=== PATIENT | female | born 1990 | race Two or more races ===

== ENCOUNTER 2016-07-08 13:52 | Emergency (ER) | payer MEDICAID ==
--- NOTE | 2016-07-08 15:16 | ER Document Report ---
ED Medical Screen (RME) - General Chief Complaint: Cough Stated Complaint: COUGH,HEADACHE,NASAL CONGESTION Time seen by provider: 15:14 Mode of Arrival: Ambulatory Information source: Patient Notes: 26-year-old female presents to ED for high blood pressure runny nose cough and headache and sneezing for week. States she had a child 3 months ago and has not had a period since then unsure if she is or not. States she had elevated blood pressure at home blood pressure is 130/84 in the emergency room. I have greeted and performed a rapid initial assessment of this patient. A comprehensive ED assessment and evaluation of the patient, analysis of test results and completion of medical decision making process will be conducted by an additional ED providers. TRAVEL OUTSIDE OF THE [place] IN LAST 30 DAYS: No - Related Data Allergies/Adverse Reactions: No Known Allergies Allergy (Verified 03/03/16 09:11) Past Medical History Pulmonary Medical History: Reports: Hx Asthma - Immunizations Immunizations up to date: Yes Hx Diphtheria, Pertussis, Tetanus Vaccination: Yes
[2016-07-08 16:02] LABS: APPEARANCE,URINE CLEAR; BILIRUBIN,URINE NEGATIVE (NEGATIVE); GLUCOSE, URINE NEGATIVE (NEGATIVE); KETONES,URINE NEGATIVE (NEGATIVE); LEUKOCYTE ESTERASE,URINE TRACE (NEGATIVE); NITRITE,URINE NEGATIVE (NEGATIVE); PROTEIN,URINE 30 mg/dL (NEGATIVE); UROBILINOGEN,URINE NEGATIVE mg/dL (<2.0)
[2016-07-08 16:04] LABS: URINE SPECIFIC GRAVITY 1.022
--- NOTE | 2016-07-08 16:59 | ER Document Report ---
ED General - General Chief Complaint: Cold Symptoms Stated Complaint: COUGH,HEADACHE,NASAL CONGESTION Mode of Arrival: Ambulatory Notes: The patient is a 26-year-old female who presents with 2 days of nasal congestion and dry cough. She had a normal delivery 3 months ago and is again and does not know what is safe to take. She is also concerned that her blood pressure is elevated. She denies shortness of breath, fevers, difficulty breathing, nausea, vomiting, seizures, abdominal pain, vaginal bleeding or urinary symptoms. TRAVEL OUTSIDE OF THE [place] IN LAST 30 DAYS: No - Related Data Allergies/Adverse Reactions: No Known Allergies Allergy (Verified 07/08/16 15:18) Past Medical History - General Information source: Patient - Social History Smoking Status: Never Smoker Chew tobacco use (# tins/day): No Frequency of alcohol use: None Drug Abuse: None Family History: Reviewed & Not Pertinent Patient has suicidal ideation: No Patient has homicidal ideation: No Pulmonary Medical History: Reports: Hx Asthma Renal/ Medical History: Denies: Hx Peritoneal Dialysis - Immunizations Immunizations up to date: Yes Hx Diphtheria, Pertussis, Tetanus Vaccination: Yes Review of Systems - Review of Systems Notes: REVIEW OF SYSTEMS: CONSTITUTIONAL: -fevers, -chills EENT: -eye pain, -difficulty swallowing, +nasal congestion CARDIOVASCULAR: -chest pain, -syncope. RESPIRATORY: +cough, -SOB GASTROINTESTINAL: -abdominal pain, -nausea, -vomiting, -diarrhea GENITOURINARY: -dysuria, -hematuria MUSCULOSKELETAL: -back pain, -neck pain SKIN: -rash or skin lesions. HEMATOLOGIC: -easy bruising or bleeding. LYMPHATIC: -swollen, enlarged glands. NEUROLOGICAL: -altered mental status or loss of consciousness, -headache, - neurologic symptoms PSYCHIATRIC: -anxiety, -depression. ALL OTHER SYSTEMS REVIEWED AND NEGATIVE. Physical Exam - Vital signs Vitals: Temp Pulse Resp BP Pulse Ox 98.6 F 101 H 16 130/84 H 100 07/08/16 14:51 07/08/16 14:51 07/08/16 14:51 07/08/16 14:51 07/08/16 14:51 - Notes Notes: PHYSICAL EXAMINATION: GENERAL: Well-appearing, well-nourished and in no acute distress. HEAD: Atraumatic, normocephalic. EYES: Pupils equal round and reactive to light, extraocular movements intact, sclera anicteric, conjunctiva are normal. ENT: swollen nasal turbinates, B/L maxillary tenderness, nares patent, oropharynx clear without exudates. Moist mucous membranes. NECK: Normal range of motion, supple without lymphadenopathy LUNGS: Breath sounds clear to auscultation bilaterally and equal. No wheezes rales or rhonchi. HEART: Regular rate and rhythm without murmurs ABDOMEN: Soft, nontender, normoactive bowel sounds. No guarding, no rebound. No masses appreciated. EXTREMITIES: Normal range of motion, no pitting or edema. No cyanosis. NEUROLOGICAL: Cranial nerves grossly intact. Normal speech, normal gait. Normal sensory, motor, and reflex exams. PSYCH: Normal mood, normal affect. SKIN: Warm, Dry, normal turgor, no rashes or lesions noted. Course - Re-evaluation Re-evalutation: Patient's blood pressure is 130/81 emergency room. She has a small amount of protein in her urine. Told to follow up with her OB for further evaluation treatment. Also instructed patient about management of her nasal congestion. - Vital Signs Vital signs: Temp Pulse Resp BP Pulse Ox 98.6 F 101 H 16 130/84 H 100 07/08/16 14:51 07/08/16 14:51 07/08/16 14:51 07/08/16 14:51 07/08/16 14:51 - Laboratory Laboratory results interpreted by me: 07/08/16 15:20 Urine Protein 30 H Ur Leukocyte Esterase TRACE H Urine Ascorbic Acid 40 H Urine HCG, Qual POSITIVE H Discharge - Discharge Clinical Impression: Nasal congestion URI (upper respiratory infection) Qualifiers: URI type: unspecified viral URI Qualified Code(s): J06.9 - Acute upper respiratory infection, unspecified Condition: Good Disposition: HOME, SELF-CARE Additional Instructions: Use the Flonase and Benadryl to help with her nasal congestion. He may also use a saline rinse, such as a Gladis pot. Follow-up with your OB to have your blood pressure rechecked. UPPER RESPIRATORY ILLNESS: You have a viral infection of the respiratory passages -- a "cold." This common infection causes nasal congestion, drainage, and often sore throat and cough. It is highly contagious. The disease usually lasts about 10 to 14 days. There is no "cure" for the viral infection -- it must run its course. If there is a complication, such as bacterial infection in the nose, sinuses, middle ear, or bronchial tubes, antibiotics may be required. The antibiotics won't affect the virus. Drink plenty of fluids. A humidifier may help. An expectorant medication or decongestant may make you more comfortable. Use acetaminophen or ibuprofen for fever or aches. See the doctor if fever persists over two days, if there is any significant worsening of your symptoms, or if you simply fail to improve as expected. USE OF ACETAMINOPHEN (Tylenol): Acetaminophen may be taken for pain relief or fever control. It's much safer than aspirin, offering a wider range of "safe" dosages. It is safe during . Some brand names are Tylenol, Panadol, Datril, Anacin 3, Tempra, and Liquiprin. Acetaminophen can be repeated every four hours. The following are maximum recommended dosages: >89 pounds or adults 650 mg to 900 mg Acetaminophen can be repeated every four hours. Maximum dose not to exceed 4000 mg a day. SMOKING: If you smoke, you should stop smoking. The tar and chemicals in cigarette smoke are harmful. Smoking has been shown to cause: emphysema chronic bronchitis lung cancer mouth and throat cancer stomach and pancreas cancer premature aging defects In addition, smoking increases ear and lung infections in children of smokers. FOLLOW-UP CARE: If you have been referred to a physician for follow-up care, call the physician s office for an appointment as you were instructed or within the next two days. If you experience worsening or a significant change in your symptoms, notify the physician immediately or return to the Emergency Department at any time for re-evaluation. Prescriptions: Fluticasone Propionate [Flonase Nasal [place] 50 Mcg/[place] 16 gm] 1 spray NASL Q12 #1 inhaler
[2016-07-08 17:03] VITALS: BP 131/80
== END 2016-07-08 17:03 | disposition home or self-care (01) ==
LOC: ER 13:52
DX: J06.9 Acute upper respiratory infection, unspecified (principal); R09.81 Nasal congestion; R51 Headache
CPT/HCPCS: 81001; 81025; 99283

== ENCOUNTER 2016-08-18 11:45 | Emergency (ER) | payer MEDICAID ==
[2016-08-18] MEDS ORDERED: ACETAMINOPHEN 325 MG TABLET PO ONE (11:51)
[2016-08-18] MEDS ORDERED: METOCLOPRAMIDE HCL 10 MG TABLET PO ONE (11:52)
--- NOTE | 2016-08-18 11:54 | ER Document Report ---
ED Medical Screen (RME) - General Stated Complaint: NAUSEA Mode of Arrival: Ambulatory Information source: Patient Notes: pt presents with MORALES for the past 2 days. Patient reports she is . She reports with last she was preeclamptic. She also reports nausea and vomiting. LMP May. I have greeted and performed a rapid initial assessment of this patient. A comprehensive ED assessment and evaluation of the patient, analysis of test results and completion of the medical decision making process will be conducted by additional ED providers. TRAVEL OUTSIDE OF THE [place] IN LAST 30 DAYS: No - Related Data Allergies/Adverse Reactions: No Known Allergies Allergy (Verified 07/08/16 15:18) Past Medical History Pulmonary Medical History: Reports: Hx Asthma Renal/ Medical History: Denies: Hx Peritoneal Dialysis - Immunizations Immunizations up to date: Yes Hx Diphtheria, Pertussis, Tetanus Vaccination: Yes
[2016-08-18 12:19] LABS: ABSOLUTE BASOPHILS # (AUTO) 0.1 10^3/uL (0.0-0.2); ABSOLUTE EOSINOPHILS # (AUTO) 0.2 10^3/uL (0.0-0.6); ABSOLUTE LYMPHOCYTES (AUTO) 2.1 10^3/uL (0.5-4.7); ABSOLUTE MONOCYTES (AUTO) 0.5 10^3/uL (0.1-1.4); ABSOLUTE NEUT (AUTO) 3.9 10^3/uL (1.7-8.2); BASOPHILS % (AUTO) 0.7 % (0-2); EOSINOPHILS % (AUTO) 3.6 % (0-6); HEMATOCRIT 35.8 % (36.0-47.0); HEMOGLOBIN 12.2 g/dL (12.0-15.5); HGB HCT DIFFERENCE 0.8; LYMPHOCYTES % (AUTO) 31.2 % (13-45); MEAN CORPUSCULAR HEMOGLOBIN 27.6 pg (27.0-33.4); MEAN CORPUSCULAR VOLUME 81 fl (80-97); MONOCYTES % (AUTO) 7.6 % (3-13); RED BLOOD COUNT 4.41 10^6/uL (3.72-5.28); RED CELL DISTRIBUTION WIDTH 16.1 % (11.5-14.0); SEGMENTED NEUTROPHILS % (AUTO) 56.9 % (42-78); WHITE BLOOD COUNT 6.8 10^3/uL (4.0-10.5)
[2016-08-18 12:27] LABS: APPEARANCE,URINE SLIGHTLY-CLOUDY; BILIRUBIN,URINE NEGATIVE (NEGATIVE); GLUCOSE, URINE NEGATIVE (NEGATIVE); KETONES,URINE NEGATIVE (NEGATIVE); LEUKOCYTE ESTERASE,URINE SMALL (NEGATIVE); NITRITE,URINE NEGATIVE (NEGATIVE); PROTEIN,URINE 30 mg/dL (NEGATIVE); URINE SPECIFIC GRAVITY 1.026; UROBILINOGEN,URINE NEGATIVE mg/dL (<2.0)
[2016-08-18 12:36] LABS: ALANINE AMINOTRANSFERASE 29 U/L (9-52); ALBUMIN 3.9 g/dL (3.5-5.0); ALKALINE PHOSPHATASE 46 U/L (38-126); ANION GAP 11 (5-19); ASPARTATE AMINO TRANSFERASE 21 U/L (14-36); BILIRUBIN,DIRECT 0.1 mg/dL (0.0-0.4); BILIRUBIN,TOTAL 0.5 mg/dL (0.2-1.3); BLOOD UREA NITROGEN 10 mg/dL (7-20); CALCIUM 10.2 mg/dL (8.4-10.2); CARBON DIOXIDE 26 mmol/L (22-30); CHLORIDE 103 mmol/L (98-107); CREATININE RESULT 0.53 mg/dL (0.52-1.25); GLUCOSE 98 mg/dL (75-110); LDH 448 U/L (313-618); POTASSIUM 4.2 mmol/L (3.6-5.0); SODIUM 140.1 mmol/L (137-145); TOTAL PROTEIN 7.4 g/dL (6.3-8.2); URIC ACID 3.8 mg/dL (2.5-6.2)
--- NOTE | 2016-08-18 13:42 | ER Document Report ---
ED General - General Chief Complaint: Headache Stated Complaint: NAUSEA Mode of Arrival: Ambulatory TRAVEL OUTSIDE OF THE [place] IN LAST 30 DAYS: No - HPI Patient complains to provider of: frontal headache Notes: Patient's coming in stating that she's not had a menstrual cycle for the last 3 months concerned she is has a frontal headache which is similar to headaches in the past with no relief with Tylenol home. Patient also is concerned she is and does not know how far along she is. Patient also because complain of some mild nausea denies any fevers chills diarrhea abdominal trauma abdominal pain - Related Data Allergies/Adverse Reactions: No Known Allergies Allergy (Verified 08/18/16 11:54) Past Medical History - General Information source: Patient - Social History Smoking Status: Never Smoker Chew tobacco use (# tins/day): No Frequency of alcohol use: None Drug Abuse: None Family History: Reviewed & Not Pertinent Pulmonary Medical History: Reports: Hx Asthma Renal/ Medical History: Denies: Hx Peritoneal Dialysis - Immunizations Immunizations up to date: Yes Hx Diphtheria, Pertussis, Tetanus Vaccination: Yes Review of Systems - Review of Systems Constitutional: No symptoms reported EENT: No symptoms reported Cardiovascular: No symptoms reported Respiratory: No symptoms reported Gastrointestinal: Nausea Genitourinary: No symptoms reported Female Genitourinary: No symptoms reported Musculoskeletal: No symptoms reported Skin: No symptoms reported Hematologic/Lymphatic: No symptoms reported Neurological/Psychological: Headaches -: Yes All other systems reviewed and negative Physical Exam - Vital signs Vitals: Temp Pulse Resp BP Pulse Ox 98.3 F 106 H 24 H 155/99 H 99 08/18/16 11:51 08/18/16 11:51 08/18/16 11:51 08/18/16 11:51 08/18/16 11:51 Interpretation: Normal - General General appearance: Appears well, Alert - HEENT Head: Normocephalic, Atraumatic Eyes: Normal Pupils: PERRL - Respiratory Respiratory status: No respiratory distress Chest status: Nontender Breath sounds: Normal Chest palpation: Normal - Cardiovascular Rhythm: Regular Heart sounds: Normal auscultation Murmur: No - Abdominal Inspection: Normal Distension: No distension Bowel sounds: Normal Tenderness: Nontender Organomegaly: No organomegaly - Back Back: Normal, Nontender - Extremities General upper extremity: Normal inspection, Nontender, Normal color, Normal ROM , Normal temperature General lower extremity: Normal inspection, Nontender, Normal color, Normal ROM , Normal temperature, Normal weight bearing. No: Margarita's sign - Neurological Neuro grossly intact: Yes Cognition: Normal Orientation: AAOx4 Daniel Coma Scale Eye Opening: Spontaneous Daniel Coma Scale Verbal: Oriented Ralph Coma Scale Motor: Obeys Commands Ralph Coma Scale Total: 15 Speech: Normal Motor strength normal: LUE, RUE, LLE, RLE Sensory: Normal - Psychological Associated symptoms: Normal affect, Normal mood - Skin Skin Temperature: Warm Skin Moisture: Dry Skin Color: Normal Course - Re-evaluation Re-evalutation: 08/18/16 13:38 Patient laboratory showed elevation in the patient's beta-hCG. Bedside ultrasound does confirm a IUP with a biparietal measurement of approximately 13 weeks. Patient's heart tones was measured at 160-158. Otherwise no other signs of concerning etiology. Patient was encouraged to take Reglan for for nausea and vitamins. 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 Patient will be discharged home - Vital Signs Vital signs: Temp Pulse Resp BP Pulse Ox 98.3 F 106 H 24 H 155/99 H 99 08/18/16 11:51 08/18/16 11:51 08/18/16 11:51 08/18/16 11:51 08/18/16 11:51 - Laboratory Result Diagrams: 08/18/16 12:00 08/18/16 12:00 Laboratory results interpreted by me: 08/18/16 08/18/16 08/18/16 12:00 12:00 12:05 Hct 35.8 L RDW 16.1 H Beta HCG, Quant 20269.00 H Urine Protein 30 H Ur Leukocyte Esterase SMALL H Urine Ascorbic Acid 40 H Discharge - Discharge Clinical Impression: Nausea Qualifiers: Weeks of gestation: 13 weeks Qualified Code(s): Z3A.13 - 13 weeks gestation of Headache Qualifiers: Headache type: unspecified Headache chronicity pattern: unspecified pattern Intractability: not intractable Qualified Code(s): R51 - Headache Condition: Good Disposition: HOME, SELF-CARE Instructions: Headache ([facility]), Reglan ([facility]), ([facility]) Additional Instructions: Take medication as prescribed. Please continue to take your vitamins. You have been seen for vomiting during . You should continue to drink plenty of water and consider taking a solution such as Pedialyte if your having difficulty eating food. Please return if you become unable to drink any fluids for more than 12 hours, urinate less than twice a day, pass out, or have any other symptoms that are concerning to you. For nausea and vomiting during I recomment: Start with 10-12.5 mg of pyridoxine (vitamin B6) three times a day for 2 days. If not fully effective, Increase to 12.5 mg of pyridoxine four times a day for 2 days. If not fully effective, Increase to 25 mg of pyridoxine three times a day for 2 days. If not fully effective, Continue 25 mg pyridoxine 3 times a day, and add 12.5 mg of doxylamine before bedtime each day for 2 days. If not fully effective, Continue 25 mg pyridoxine 3 times a day, and take 12.5 mg of doxylamine twice a day. If not fully effective, Continue 25 mg pyridoxine 3 times a day, and take 12.5 mg of doxylamine three times a day. If not fully effective, Continue 25 mg pyridoxine 3 times a day, and 12.5 mg of doxylamine 3 times a day , while adding Emetrol, one to two tablespoons (15-30 cc) taken once or twice a day as needed. (Emetrol is an [id number] mixture of sugar syrups and phosphoric acid [phosphorylated carbohydrate solution]) that acts by soothing the actual wall of the gastrointestinal tract). If not fully effective, Consult with your doctor. Prescriptions: Metoclopramide HCl [Reglan] 5 mg PO Q6 #20 tablet Pnv No.122/Iron/Folic Acid [ Multi Tablet] 1 each PO DAILY #30 tablet Referrals: BHUMIKA BAILEY MD [Primary Care Provider] - Follow up in 3-5 days
[2016-08-18 14:16] VITALS: BP 133/87
== END 2016-08-18 14:14 | disposition home or self-care (01) ==
LOC: ER 11:45
DX: R51 Headache (principal); R11.0 Nausea; Z3A.13 13 weeks gestation of pregnancy
CPT/HCPCS: 99284; 36415; 84702; 83615; 84550; 85025; 80053; 81001; J3490 ×2

== ENCOUNTER 2016-09-04 17:16 | Emergency (ER) | payer SELFPAY ==
--- NOTE | 2016-09-04 18:02 | ER Document Report ---
ED Medical Screen (RME) - General Chief Complaint: High Blood Pressure Stated Complaint: HEADACHE,LIGHTHEADED Notes: This 26-year-old female who is 16 weeks is sent from the health department for monitoring for elevated blood pressure. She did have preeclampsia with her first and was delivered at 29 weeks. Her most recent her blood pressure was quite elevated, but she reports that they never started treatment during that . She has no symptoms associated with this other than occasional nausea. I have greeted and performed a rapid initial assessment of this patient. A comprehensive ED assessment and evaluation of the patient, analysis of test results and completion of the medical decision making process will be conducted by additional ED providers. TRAVEL OUTSIDE OF THE [place] IN LAST 30 DAYS: No - Related Data Allergies/Adverse Reactions: No Known Allergies Allergy (Verified 09/04/16 17:29) Past Medical History Pulmonary Medical History: Reports: Hx Asthma Renal/ Medical History: Denies: Hx Peritoneal Dialysis - Immunizations Immunizations up to date: Yes Hx Diphtheria, Pertussis, Tetanus Vaccination: Yes Physical Exam - Vital signs Vitals: Temp Pulse Resp BP Pulse Ox 98.3 F 95 20 147/102 H 100 09/04/16 17:32 09/04/16 17:32 09/04/16 17:32 09/04/16 17:32 09/04/16 17:32 Course - Vital Signs Vital signs: Temp Pulse Resp BP Pulse Ox 98.3 F 95 20 147/102 H 100 09/04/16 17:32 09/04/16 17:32 09/04/16 17:32 09/04/16 17:32 09/04/16 17:32
[2016-09-04 18:39] LABS: ABSOLUTE EOSINOPHILS # (AUTO) 0.5 10^3/uL (0.0-0.6); ABSOLUTE LYMPHOCYTES (AUTO) 2.5 10^3/uL (0.5-4.7); ABSOLUTE MONOCYTES (AUTO) 0.7 10^3/uL (0.1-1.4); BASOPHILS % (AUTO) 0.4 % (0-2); EOSINOPHILS % (AUTO) 6.2 % (0-6); HEMATOCRIT 36.7 % (36.0-47.0); HEMOGLOBIN 12.3 g/dL (12.0-15.5); HGB HCT DIFFERENCE 0.2; LYMPHOCYTES % (AUTO) 28.3 % (13-45); MEAN CORPUSCULAR HEMOGLOBIN 27.5 pg (27.0-33.4); MEAN CORPUSCULAR HGB CONC 33.4 g/dL (32.0-36.0); MEAN CORPUSCULAR VOLUME 82 fl (80-97); MONOCYTES % (AUTO) 8.3 % (3-13); RED BLOOD COUNT 4.46 10^6/uL (3.72-5.28); RED CELL DISTRIBUTION WIDTH 15.9 % (11.5-14.0); SEGMENTED NEUTROPHILS % (AUTO) 56.8 % (42-78); WHITE BLOOD COUNT 8.8 10^3/uL (4.0-10.5)
[2016-09-04 18:53] LABS: APPEARANCE,URINE SLIGHTLY-CLOUDY; BILIRUBIN,URINE NEGATIVE (NEGATIVE); GLUCOSE, URINE NEGATIVE (NEGATIVE); KETONES,URINE NEGATIVE (NEGATIVE); LEUKOCYTE ESTERASE,URINE NEGATIVE (NEGATIVE); NITRITE,URINE NEGATIVE (NEGATIVE); PROTEIN,URINE 30 mg/dL (NEGATIVE); URINE SPECIFIC GRAVITY 1.029; UROBILINOGEN,URINE NEGATIVE mg/dL (<2.0)
[2016-09-04 19:02] LABS: ALANINE AMINOTRANSFERASE 29 U/L (9-52); ALBUMIN 4.2 g/dL (3.5-5.0); ALKALINE PHOSPHATASE 52 U/L (38-126); ANION GAP 14 (5-19); ASPARTATE AMINO TRANSFERASE 28 U/L (14-36); BILIRUBIN,DIRECT 0.2 mg/dL (0.0-0.4); BILIRUBIN,TOTAL 0.5 mg/dL (0.2-1.3); BLOOD UREA NITROGEN 13 mg/dL (7-20); CALCIUM 10.1 mg/dL (8.4-10.2); CARBON DIOXIDE 24 mmol/L (22-30); CHLORIDE 103 mmol/L (98-107); CREATININE RESULT 0.52 mg/dL (0.52-1.25); GLUCOSE 90 mg/dL (75-110); POTASSIUM 4.5 mmol/L (3.6-5.0); SODIUM 140.5 mmol/L (137-145); TOTAL PROTEIN 7.8 g/dL (6.3-8.2)
[2016-09-04 20:49] VITALS: BP 130/95
--- NOTE | 2016-09-04 21:13 | ER Document Report ---
ED General - General Chief Complaint: High Blood Pressure Stated Complaint: HEADACHE,LIGHTHEADED Notes: Patient is a 26-year-old female, at 16 weeks gestation by first trimester ultrasound, that comes emergency department for chief complaint of being sent from the health department for elevated blood pressures. Patient denies any current symptoms, states she feels fine now, states she did have a headache earlier but this resolved. She denies vomiting, abdominal pain, vaginal bleeding, or any other current symptoms. He states she has a history of preeclampsia with her second , states she was induced at 29 weeks. TRAVEL OUTSIDE OF THE [place] IN LAST 30 DAYS: No - Related Data Allergies/Adverse Reactions: No Known Allergies Allergy (Verified 09/04/16 17:29) Past Medical History - General Information source: Patient - Social History Smoking Status: Never Smoker Frequency of alcohol use: None Drug Abuse: None Lives with: Family Family History: Reviewed & Not Pertinent Patient has suicidal ideation: No Patient has homicidal ideation: No Pulmonary Medical History: Reports: Hx Asthma Renal/ Medical History: Denies: Hx Peritoneal Dialysis - Immunizations Immunizations up to date: Yes Hx Diphtheria, Pertussis, Tetanus Vaccination: Yes Review of Systems - Review of Systems Constitutional: No symptoms reported EENT: No symptoms reported Cardiovascular: See HPI Respiratory: No symptoms reported Gastrointestinal: No symptoms reported Genitourinary: No symptoms reported Female Genitourinary: See HPI Musculoskeletal: No symptoms reported Skin: No symptoms reported Hematologic/Lymphatic: No symptoms reported Neurological/Psychological: No symptoms reported Physical Exam - Vital signs Vitals: Temp Pulse Resp BP Pulse Ox 98.3 F 95 20 147/102 H 100 09/04/16 17:32 09/04/16 17:32 09/04/16 17:32 09/04/16 17:32 09/04/16 17:32 Interpretation: Normal - General General appearance: Appears well, Alert, Other - Patient appears excited, talks rapidly, appears slightly nervous In distress: None - HEENT Head: Normocephalic, Atraumatic Eyes: Normal Pupils: PERRL - Respiratory Respiratory status: No respiratory distress Chest status: Nontender Breath sounds: Normal Chest palpation: Normal - Cardiovascular Rhythm: Regular. No: Tachycardia Heart sounds: Normal auscultation, S1 appreciated, S2 appreciated Murmur: No - Abdominal Inspection: Normal Distension: No distension Bowel sounds: Normal Tenderness: Nontender. No: Tender Organomegaly: No organomegaly - Back Back: Normal, Nontender - Extremities General upper extremity: Normal inspection, Nontender, Normal color, Normal ROM , Normal temperature General lower extremity: Normal inspection, Nontender, Normal color, Normal ROM , Normal temperature, Normal weight bearing. No: Margarita's sign - Neurological Neuro grossly intact: Yes Cognition: Normal Orientation: AAOx4 Daniel Coma Scale Eye Opening: Spontaneous Daniel Coma Scale Verbal: Oriented Daniel Coma Scale Motor: Obeys Commands Daniel Coma Scale Total: 15 Speech: Normal Motor strength normal: LUE, RUE, LLE, RLE Sensory: Normal - Psychological Associated symptoms: Normal affect, Normal mood, Anxious - Slightly - Skin Skin Temperature: Warm Skin Moisture: Dry Skin Color: Normal Course - Re-evaluation Re-evalutation: Patient initially very nervous and excited, blood pressure slightly elevated at nonspecific, this was repeated when she was calmer and is in the 130s over 80s, patient very well appearing, soft abdomen, unremarkable vital signs, nonspecific workup which is basically unchanged from the previous 2 workups that she has had during this at this department. Patient is less than 20 weeks gestation, per up-to-date guidelines they do not recommend treatment of elevated blood pressure that is averaging below 150s over 100s even in patients greater than 20 weeks who have preeclampsia. I discussed this with patient. I discussed her workup, patient has follow-up are scheduled for [employer]PUT[employer]ER[employer] BUILDING GUARD, discussed return precautions. Patient states understanding, satisfaction, agreement. - Vital Signs Vital signs: Temp Pulse Resp BP Pulse Ox 99.1 F 103 H 16 130/95 H 98 09/04/16 20:45 09/04/16 20:45 09/04/16 20:45 09/04/16 20:45 09/04/16 20:45 - Laboratory Result Diagrams: 09/04/16 18:05 09/04/16 18:05 Laboratory results interpreted by me: 09/04/16 09/04/16 18:05 18:10 RDW 15.9 H Eosinophils % 6.2 H Urine Protein 30 H Discharge - Discharge Clinical Impression: Elevated blood pressure reading Condition: Stable Disposition: HOME, SELF-CARE Additional Instructions: Your blood pressure is borderline high, I suspect this is not specific to and you likely have pre-existing borderline hypertension. 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 Follow-up with them for additional management. However please return immediately if she develops any concerning symptoms including severe headache, severe abdominal pain, vaginal bleeding, or any other concerning symptoms.
== END 2016-09-04 21:05 | disposition home or self-care (01) ==
LOC: ER 17:16
DX: R03.0 Elevated blood-pressure reading, without diagnosis of hypertension (principal); R51 Headache; R42 Dizziness and giddiness; Z3A.16 16 weeks gestation of pregnancy
CPT/HCPCS: 36415; 80053; 81001; 85025; 99284

== ENCOUNTER 2016-09-18 17:51 | Emergency (ER) | payer SELFPAY ==
[2016-09-18 18:13] VITALS: BP 128/88
== END 2016-09-19 01:00 | disposition left against medical advice (07) ==
LOC: ER 17:51
DX: Z53.21 Procedure and treatment not carried out due to patient leaving prior to being seen by health care provider (principal)

== ENCOUNTER → 2016-10-24 | Outpatient (CLI) | payer MEDICAID ==
--- NOTE | 2016-10-24 16:45 | RADIOLOGY REPORT (SQ) ---
EXAM DESCRIPTION: U/S OB 14+ TRNABD 1GES W/O DOP COMPLETED DATE/TIME: 10/24/2016 4:28 pm REASON FOR STUDY: SECOND TRIMESTER Z34.82 ENCOUNTER FOR SUPRVSN OF NORMAL , SECO ND TRI COMPARISON: None. TECHNIQUE: Static and Dynamic grayscale imaging performed of gravid uterus using transabdominal appr oach. Additional selected color Doppler and spectral images recorded. All stored on PACS. LIMITATIONS: None. FINDINGS: EGA: 22 week 4 day. JERE: 02/23/2017. EFW: 508 g. PERCENTILE: 24%. FABIANO: Adequate amount. PLACENTA: Anterior. PRESENTATION: Breech. ANATOMY: HEART RATE: 173 beats per minute. FOUR CHAMBER HEART: Visualized. THREE VESSEL CORD: Yes. CORD INSERTION: Visualized. KIDNEYS AND BLADDER: Visualized. Appear normal. STOMACH: Visualized. Appears normal. SPINE: Normal as visualized. BRAIN AND LATERAL VENTRICLES: Visualized. Appear normal. OTHER: No other significant finding. MATERNAL ADNEXA: Maternal ovaries not visualized. OTHER: No other significant finding. IMPRESSION: LIVING INTRAUTERINE . ESTIMATED GESTATIONAL AGE 22 WEEK 4 DAY. NO VISUALIZED ANOMALIES. Trimester of : Second trimester - 13 weeks 1 day to 27 weeks 6 days. TECHNICAL DOCUMENTATION: JOB ID: [id number] [employer]- All Rights Reserved
== END ==
LOC: RAD 15:30
PROVIDERS: ATTEND Nurse Practitioner Women's Health
DX: Z34.82 Encounter for supervision of other normal pregnancy, second trimester (principal)
CPT/HCPCS: 76805

== ENCOUNTER 2016-12-02 14:17 | Observation (INO) | payer MEDICAID ==
[2016-12-02 15:14] LABS: APPEARANCE,URINE SLIGHTLY-CLOUDY; BILIRUBIN,URINE NEGATIVE (NEGATIVE); GLUCOSE, URINE NEGATIVE (NEGATIVE); KETONES,URINE NEGATIVE (NEGATIVE); LEUKOCYTE ESTERASE,URINE NEGATIVE (NEGATIVE); NITRITE,URINE NEGATIVE (NEGATIVE); PROTEIN,URINE NEGATIVE (NEGATIVE); URINE SPECIFIC GRAVITY 1.016; UROBILINOGEN,URINE NEGATIVE mg/dL (<2.0)
[2016-12-02 15:15] LABS: URINE BARBITURATES SCREEN NEGATIVE; URINE METHADONE SCREEN NEGATIVE; URINE OPIATES LOW NEGATIVE; URINE PHENCYCLIDINE SCREEN NEGATIVE
[2016-12-02 15:35] LABS: URINE CREATININE 106.6 mg/dL (16-327); URINE PROTEIN 37.6 mg/dL (<12)
[2016-12-02 15:51] LABS: ALANINE AMINOTRANSFERASE 29 U/L (9-52); ALBUMIN 3.5 g/dL (3.5-5.0); ALKALINE PHOSPHATASE 67 U/L (38-126); ANION GAP 11 (5-19); ASPARTATE AMINO TRANSFERASE 23 U/L (14-36); BILIRUBIN,DIRECT 0.3 mg/dL (0.0-0.4); BILIRUBIN,TOTAL 0.4 mg/dL (0.2-1.3); BLOOD UREA NITROGEN 9 mg/dL (7-20); CALCIUM 9.7 mg/dL (8.4-10.2); CARBON DIOXIDE 21 mmol/L (22-30); CHLORIDE 107 mmol/L (98-107); CREATININE RESULT 0.42 mg/dL (0.52-1.25); GLUCOSE 90 mg/dL (75-110); LDH 471 U/L (313-618); POTASSIUM 4.8 mmol/L (3.6-5.0); SODIUM 138.5 mmol/L (137-145); TOTAL PROTEIN 7.2 g/dL (6.3-8.2); URIC ACID 3.6 mg/dL (2.5-6.2)
[2016-12-02] MEDS ORDERED: BETAMET ACET/BETAMET NA INJ 6 MG/1 ML ONE (15:51)
[2016-12-02] MEDS ORDERED: LABETALOL HCL 200 MG TABLET ONE (16:05)
[2016-12-02] MEDS: BETAMET ACET/BETAMET NA INJ 6 MG/1 ML IM SCH (16:11)
[2016-12-02 16:27] LABS: ABSOLUTE BASOPHILS # (AUTO) 0.1 10^3/uL (0.0-0.2); ABSOLUTE EOSINOPHILS # (AUTO) 0.2 10^3/uL (0.0-0.6); ABSOLUTE LYMPHOCYTES (AUTO) 2.5 10^3/uL (0.5-4.7); ABSOLUTE MONOCYTES (AUTO) 0.8 10^3/uL (0.1-1.4); ABSOLUTE NEUT (AUTO) 5.9 10^3/uL (1.7-8.2); BASOPHILS % (AUTO) 0.6 % (0-2); EOSINOPHILS % (AUTO) 1.9 % (0-6); HEMATOCRIT 36.2 % (36.0-47.0); HEMOGLOBIN 12.1 g/dL (12.0-15.5); HGB HCT DIFFERENCE 0.1; LYMPHOCYTES % (AUTO) 26.7 % (13-45); MEAN CORPUSCULAR HEMOGLOBIN 28.2 pg (27.0-33.4); MEAN CORPUSCULAR HGB CONC 33.5 g/dL (32.0-36.0); MEAN CORPUSCULAR VOLUME 84 fl (80-97); MONOCYTES % (AUTO) 8.4 % (3-13); RED CELL DISTRIBUTION WIDTH 14.8 % (11.5-14.0); SEGMENTED NEUTROPHILS % (AUTO) 62.4 % (42-78); WHITE BLOOD COUNT 9.5 10^3/uL (4.0-10.5)
--- NOTE | 2016-12-02 18:47 | RADIOLOGY REPORT (SQ) ---
EXAM DESCRIPTION: U/S OB LIMITED COMPLETED DATE/TIME: 12/02/2016 5:38 pm REASON FOR STUDY: 29wk IUP, poor dates, HTN, GROWTH COMPARISON: None. TECHNIQUE: Limited transabdominal grayscale ultrasound for evaluation of specific requested obstetri kb parameters. LIMITATIONS: None. FINDINGS: Intrauterine measuring 29 weeks 2 days by composite ultrasound scoring, consiste nt with dates. EFW 1394 g. CERVICAL LENGTH: Not visualized FABIANO: 15.2 cm. FHR: Not documented. PRESENTATION: Cephalic. OTHER: Anterior placenta. IMPRESSION: LIMITED OBSTETRICAL ULTRASOUND WITH MEASURED PARAMETERS DELINEATED ABOVE. Trimester of : Third trimester - 28 weeks to delivery. TECHNICAL DOCUMENTATION: JOB ID: [id number] [employer]- All Rights Reserved
[2016-12-03] MEDS ORDERED: LABETALOL HCL 200 MG TABLET PO SCH (06:00)
--- NOTE | 2016-12-03 08:18 | EKG REPORT ---
SEVERITY:- ABNORMAL ECG - SINUS TACHYCARDIA PROBABLE LEFT VENTRICULAR HYPERTROPHY BORDERLINE PROLONGED QT INTERVAL : Confirmed by: Ben Cox MD 03-Dec-2016 08:17:49
--- NOTE | 2016-12-03 09:51 | PDOC PROGRESS REPORT ---
Subjective Subjective:: Pt reports feeling well, onlt occ "heart palpatations" when she gets nervous, no pain or SOB No ctx's, VB or LOF, reports good movement Physical Exam - Physical Exam Vital Signs: Temp Pulse Resp BP Pulse Ox 97.7 F 112 H 16 125/74 98 12/03/16 08:04 12/03/16 08:04 12/03/16 08:04 12/03/16 08:04 12/03/16 08:04 Intake & Output 12/02/16 12/03/16 12/04/16 06:59 06:59 06:59 Weight 111.35 kg General appearance: PRESENT: no acute distress, well-developed Result Laboratory Results: 12/02/16 16:03 12/02/16 15:15 12/02/16 12/02/16 12/02/16 14:33 15:15 15:15 WBC RBC Hgb Hct MCV MCH MCHC RDW Plt Count Seg Neutrophils % Lymphocytes % Monocytes % Eosinophils % Basophils % Absolute Neutrophils Absolute Lymphocytes Absolute Monocytes Absolute Eosinophils Absolute Basophils Sodium 138.5 Potassium 4.8 Chloride 107 Carbon Dioxide 21 L Anion Gap 11 BUN 9 Creatinine 0.42 L Est GFR ( Amer) > 60 Est GFR (Non-Af Amer) > 60 Glucose 90 Uric Acid 3.6 Calcium 9.7 Total Bilirubin 0.4 AST 23 ALT 29 Alkaline Phosphatase 67 Total Protein 7.2 Albumin 3.5 Urine Color YELLOW Urine Appearance SLIGHTLY-CLOUDY Urine pH 6.0 Ur Specific [place] 1.016 Urine Protein NEGATIVE Urine Glucose (UA) NEGATIVE Urine Ketones NEGATIVE Urine Blood NEGATIVE Urine Nitrite NEGATIVE Ur Leukocyte Esterase NEGATIVE Urine WBC (Auto) 2 Urine RBC (Auto) 3 Blood Type A POSITIVE Antibody Screen NEGATIVE 12/02/16 16:03 WBC 9.5 RBC 4.30 Hgb 12.1 Hct 36.2 MCV 84 MCH 28.2 MCHC 33.5 RDW 14.8 H Plt Count 276 Seg Neutrophils % 62.4 Lymphocytes % 26.7 Monocytes % 8.4 Eosinophils % 1.9 Basophils % 0.6 Absolute Neutrophils 5.9 Absolute Lymphocytes 2.5 Absolute Monocytes 0.8 Absolute Eosinophils 0.2 Absolute Basophils 0.1 Sodium Potassium Chloride Carbon Dioxide Anion Gap BUN Creatinine Est GFR ( Amer) Est GFR (Non-Af Amer) Glucose Uric Acid Calcium Total Bilirubin AST ALT Alkaline Phosphatase Total Protein Albumin Urine Color Urine Appearance Urine pH Ur Specific [place] Urine Protein Urine Glucose (UA) Urine Ketones Urine Blood Urine Nitrite Ur Leukocyte Esterase Urine WBC (Auto) Urine RBC (Auto) Blood Type Antibody Screen Impressions: Obstetrics Ultrasound 12/02/16 00:00 IMPRESSION: LIMITED OBSTETRICAL ULTRASOUND WITH MEASURED PARAMETERS DELINEATED ABOVE. Trimester of : Third trimester - 28 weeks to delivery. Status: Imported from [facility] Assessment & Plan - Diagnosis (1) Gestational hypertension Qualifiers: Trimester: third trimester Is this a current diagnosis for this admission?: Yes (2) Hepatitis C carrier Is this a current diagnosis for this admission?: Yes (3) Limited care Qualifiers: Trimester: third trimester Qualified Code(s): O09.33 - Supervision of with insufficient care, third trimester Is this a current diagnosis for this admission?: Yes - Time Time Spent with patient: 15-24 minutes Medications reviewed and adjusted accordingly: Yes Anticipated discharge: Home Within: within 48 hours - Will await Cardiology consult
--- NOTE | 2016-12-03 10:09 | XCELERA REPORT ---
[address] [address] Transthoracic Echocardiogram Report Name: WILLIAMS RAY Age: 26 yrs Gender: Female : 1990 Patient Status: Inpatient Patient Location: 2N\S\208\S\A Study Date: 12/03/2016 08:07 AM Height: 62 in Weight: 245 lb BSA: 2.1 m2 Procedure: A two-dimensional transthoracic echocardiogram with color flow and Doppler was performed. The study was technically adequate with some images being suboptimal in quality. Reason For Study: [email or web address] History: TACHYCARDUIA. Ordering Physician: MICHELLE ADAMES Performed By: Abimael Fine Interpretation Summary The left ventricle is normal in size. There is normal left ventricular wall thickness. LV EF is > than 60% Left ventricular systolic function is normal. Doppler measurements suggest normal left ventricular diastolic function The left ventricular wall motion is normal. There is no thrombus. There is no ventricular septal defect visualized. The right ventricle is normal in size and function. The right atrium is normal. The left atrial size is normal. The interatrial septum is intact with no evidence for an atrial septal defect. There is subtle prolapse of the anterior mitral valve prolapse. There is no vegetation seen on the mitral valve. There is no mitral valve stenosis. There is a trace amount of mitral regurgitation The aortic valve is trileaflet. The aortic valve is normal in structure and functions normally The aortic valve opens well. There is no aortic valvular vegetation. There is no aortic valve stenosis There is no LVOT obstruction. No aortic regurgitation is present. There is no tricuspid stenosis. There is a trace amount of tricuspid regurgitation Right ventricular systolic pressure is normal. RVSP is 26.3 mm of Hg ,with RA mean of 5. There is no pulmonic valvular stenosis. There is a trace amount of pulmonic regurgitation The aortic root is normal size. There is no pericardial effusion. MMode/2D Measurements \T\ Calculations RVDd: 2.5 cm LVIDd: 4.5 cm FS: 33.1 % Ao root diam: 3.1 cm IVSd: 1.1 cm LVIDs: 3.0 cm EDV(Teich): 90.5 ml LVPWd: 1.2 cm ESV(Teich): 34.5 ml Ao root area: 7.7 cm2 EF(Teich): 61.9 % Doppler Measurements \T\ Calculations MV E max hubert: MV dec slope: Ao V2 max: LV V1 max P.3 cm/sec 146.6 cm/sec 4.0 mmHg MV A max hubert: 840.1 cm/sec2 Ao max PG: LV V1 max: 74.2 cm/sec MV dec time: 8.6 mmHg 99.6 cm/sec MV E/A: 1.2 0.10 sec PA V2 max: PI end-d hubert: TR max hubert: RAP systole: 96.7 cm/sec 140.1 cm/sec 229.9 cm/sec 5.0 mmHg PA max PG: TR max P.7 mmHg 21.3 mmHg RVSP(TR): 26.3 mmHg Left Ventricle The left ventricle is normal in size. There is normal left ventricular wall thickness. LV EF is > than 60%. Left ventricular systolic function is normal. Doppler measurements suggest normal left ventricular diastolic function. The left ventricular wall motion is normal. There is no thrombus. There is no ventricular septal defect visualized. Right Ventricle The right ventricle is normal in size and function. Atria The right atrium is normal. The left atrial size is normal. The interatrial septum is intact with no evidence for an atrial septal defect. Mitral Valve There is subtle prolapse of the anterior mitral valve prolapse. There is no vegetation seen on the mitral valve. There is no mitral valve stenosis. There is a trace amount of mitral regurgitation. Aortic Valve The aortic valve is trileaflet. The aortic valve is normal in structure and functions normally. The aortic valve opens well. There is no aortic valvular vegetation. There is no aortic valve stenosis. There is no LVOT obstruction. No aortic regurgitation is present. Tricuspid Valve There is no tricuspid stenosis. There is a trace amount of tricuspid regurgitation. Right ventricular systolic pressure is normal. RVSP is 26.3 mm of Hg ,with RA mean of 5. Pulmonic Valve There is no pulmonic valvular stenosis. There is a trace amount of pulmonic regurgitation. Great Vessels The aortic root is normal size. Effusions There is no pericardial effusion. : MICHELLE ADAMES > Michelle Adames
[2016-12-03 11:23] LABS: FREE T3 2.4 pg/mL (2.77-5.27)
[2016-12-03 11:36] LABS: THYROID STIMULATING HORMONE 0.59 uIU/mL (0.47-4.68)
[2016-12-03 16:03] VITALS: BP 134/87
[2016-12-03] MEDS: BETAMET ACET/BETAMET NA INJ 6 MG/1 ML IM SCH (17:06)
--- NOTE | 2016-12-03 18:18 | CONSULTATION REPORT E ---
Consultation Report NAME: WILLIAMS RAY : 1990 AGE: 26Y DATE: 12/03/2016 208 A TO: JORDIN ADAMES M.D. FROM: Requesting Physician REASON FOR CONSULTATION: Sinus tachycardia in a patient who is in third trimester of . HISTORY: The patient is a morbidly obese female who has been diagnosed with having gestational diabetes in her third trimester of . She is morbid obesity and she states that since the last 3 weeks, she has been having rapid racing heart beat, but no associated shortness of breath, chest pain, dizziness, near syncope or syncope. There is no PND or orthopnea. There is no dyspnea. The patient states that since the last 3 weeks, she has been feeling more anxious and has episodes where she becomes extremely nervous and her heart rate jumps up to the 130s to 140s. At present, the patient is comfortable. She is not aware of her heart racing. PAST MEDICAL HISTORY: Positive for: 1. History of preeclampsia in her first . 2. Gestational diabetes in her second . 3. Now in the third trimester of her third , she has got gestational hypertension. 4. The patient claims that she has a history of asthma, but has not had an asthmatic attack in a long time. 5. She has no history of sleep apnea. 6. She has no history of diabetes mellitus or gestational diabetes. 7. There is no history of headaches, seizures or migraines. 8. There is no syncope. 9. She does have palpitations as mentioned earlier. 10. There is no history of congenital heart disease. 11. She states she has anxiety and has 'nervous spells'. PAST SURGICAL HISTORY: Cyst removed from the left wrist. ALLERGIES: She has no known allergies. SOCIAL HISTORY: The patient does not smoke. There is no history of EtOH abuse. FAMILY HISTORY: She states her mother has a murmur, but no other illnesses in the family. DISPOSITION: The patient is a FULL CODE. Her mother is her surrogate healthcare decision maker. MEDICATIONS: 1. Erick-In-Radha 12 mg IM daily. 2. Labetalol 100 mg p.o. every 12 hours. REVIEW OF SYMPTOMS: CONSTITUTIONAL: Denies any fever, chills, or rigors. Does complain of some fatigue, but no generalized weakness. HEAD: Denies headaches or head injury or dizziness. EYES: No history of amblyopia or diplopia. No history of amaurosis fugax. EARS: No history of hearing loss. No history of tinnitus. No history of recurrent ear infections. No history of vertigo. NOSE: No history of hay fever. No history of nosebleeds. No history of nasal allergies. MOUTH: No history of altered taste sensation. No history of ulcers in the mouth. No bleeding from the gums. THROAT: No odynophagia or dysphagia. No history of recurrent sore throats. SKIN: No history of pruritus. No history of yellowish discoloration of the skin. No history of skin cancer or psoriasis. NECK: No painless or painful swelling of the neck. No goiter. No neck pain. LUNGS: Past history of asthma in the past, but no attacks in a long time. No history of cough or sputum production. No history of COPD. No history of sleep apnea. No history of pulmonary embolism. No history of pleuritic chest pain. No history of cough. CARDIAC: No history of congestive heart failure. No history of chest pain or discomfort. No history of congenital heart disease. There is no history of PND, orthopnea or shortness of breath. The patient complains of palpitations over the last 3 weeks, but has no other symptoms associated with that. There is no leg edema. There is no near syncope, syncope, or dizziness. The patient has been noted to be having gestational diabetes and the patient is on labetalol for that. GASTROINTESTINAL: No history of GI bleed. No history of peptic ulcer disease. No history of jaundice. No history of fatty food intolerance. No history of cirrhosis. No abdominal pain. COLLECTION CORRESPONDENT: The patient has been found to have gestational diabetes in her third trimester. RENAL: Negative for any chronic kidney disease. No history of symptoms of UTI. No history of hematuria, pyuria or dysuria. MUSCULOSKELETAL: Denies arthritis, collagen vascular disease. METABOLIC: No history of gout. No history of hyperlipidemia. History of obesity present. CENTRAL NERVOUS SYSTEM: No history of seizures, headaches or migraines. No history of TIA or CVA. No history of gait imbalance. PSYCHIATRIC: No history of depression, but the patient does have a history of anxiety and states she becomes nervous for no reason, at which time, her heart rate goes up. VASCULAR: No history of calf or buttock claudication. No history of DVT. HEMATOLOGIC: No history of anemia. No history of bleeding diathesis. No history of clotting disorders. The rest of the review of symptoms is negative for any fever, chills or rigors. ENDOCRINE: No history of diabetes mellitus. No history of thyroid disease. No history of heat or cold intolerance. No history of polydipsia or polyuria. No history of hirsutism. No history of excessive sweating. PHYSICAL EXAMINATION: GENERAL: On examination, the patient is morbidly obese, but well groomed and at present, in no acute distress. VITAL SIGNS: She is afebrile with a temperature of 97.7 degrees Fahrenheit. Her pulse is 110 beats per minute, regular. Blood pressure is 125/74. Respirations 16 per minute. O2 saturation 98% on room air. HEENT: Head is atraumatic and normocephalic. Eyes; pupils are equal, round, regular, reactive to light and accommodation. Extraocular movements are normal. There is no conjunctival pallor. There is no scleral icterus. Ears; tympanic membranes are intact. External auditory canals are clear. Nose; there is no deviated nasal septum. There is no inflammation of the nasal mucous membranes. Mouth; mucous membranes of the mouth are moist. Tongue is moist. There are no ulcers. There is no bleeding from the gums. Throat; there is no redness of the oropharynx. There are no exudates in the throat. SKIN: There are no skin rashes. There is no petechia or ecchymosis. There are no skin lesions. NECK: Supple. There is no JVD. Carotids are equal. There is no bruit. There is no lymphadenopathy. Trachea is central. There is no goiter. LUNGS: There is no accessory muscles or respiration in use. Lungs are clear to auscultation and percussion. CHEST: There is no chest wall tenderness. HEART: S1 and S2 are heard. There is no S3 gallop. There is no S4 gallop. There is a systolic murmur at the left sternal border at the apex without radiation. There is no rub. There are no gallops. ABDOMEN: Soft, obese, nontender. There is no hepatosplenomegaly. Bowel sounds are well heard. There are no tender areas or masses. COLLECTION CORRESPONDENT: The patient has gravid uterus which is 28 weeks . EXTREMITIES: Femorals are deep. Femorals are slightly diminished There are no femoral bruits. Leg pulses are well felt. There is no pedal edema. There is no cyanosis or clubbing. There is no DVT or cellulitis. There is no calf tenderness. Capillary refill is normal. CENTRAL NERVOUS SYSTEM: The patient is conscious, awake, alert, oriented x3 with no focal deficits. PSYCHIATRIC: The patient does appear to be slightly anxious and nervous, but her judgment and insight are intact. Her affect is normal. ECHOCARDIOGRAM: Shows normal left ventricular and right ventricular systolic and diastolic functions. There is subtle prolapse of the anterior mitral valve leaflet with trace mitral regurgitation. There is trace tricuspid regurgitation with no pulmonary hypertension. The aortic valve has no evidence of stenosis or regurgitation. LABORATORY: White count 9500, hemoglobin 12.1, hematocrit 36.2, platelet count 276,000. Sodium 138.5, potassium 4.8, chloride 107, CO2 of 21, BUN 9, creatinine 0.42, GFR greater than 60, glucose 90. Uric acid is 3.6. Calcium 9.7. Liver function tests are normal. Total protein is 7.2, albumin normal at 3.5. TSH 0.59, free T4 is slightly low at 0.60, free T3 is slightly low at 2.40. Magnesium mildly low at 1.5. IMPRESSION: 1. Sinus tachycardia secondary to most likely subtle mitral valve prolapse, obesity, anxiety, and mildly decreased magnesium level. The patient is reassured. Would get a 30-day event monitor to make sure that the patient does not have SVT. 2. Gestational hypertension. Agree with continuing the patient on labetalol. 3. Subtle prolapse of the mitral valve anterior leaflet. No significant regurgitant lesions. The patient is reassured that this should not be a major problem. 4. Morbid obesity. 5. Mild hypomagnesemia. 6. Third trimester of . 7. History of asthma. No attacks recently. 8. History of anxiety. RECOMMENDATIONS: 1. If no contraindication, would recommend that the patient's magnesium be replaced in the form of magnesium oxide 40 mg p.o. daily x4 days. 2. Will get a 30-day event monitor. The patient was given my cell number to call me. We will arrange for the 30-day event monitor which will be sent to the patient's home. 3. Discussed with Dr. Gonzales. The patient most likely can go home from a cardiac point of view. 4. Echo results discussed with the patient. NOTE: Forty minutes spent on this patient. The patient was seen at 1000 hours and 40 minutes were spent on the patient, with more than 50% of the time spent in direct patient care. Also discussed with COLLECTION CORRESPONDENT about the patient, discussed with the patient the echo findings. Note this involved a moderately complex medical decision making. Will follow the patient as an outpatient. DICTATING PHYSICIAN: JORDIN ADAMES M.D. [id number] PHY#: [id number] ID: [id number] JOB#: [id number] ACCT: [id number] cc:JORDIN ADAMES M.D. > MTDD
--- NOTE | 2016-12-28 17:27 | PDOC H&P ---
History of Present Illness Admission Date/PCP: 12/02/16 15:17 Patient complains of: "not feeling right" concerned about blood pressure History of Present Illness: WILLIAMS RAY is a 26 year old female who has had hypertensive issues in all her previous pregnancies the last of which was in late 2016. She is unsure of her gestational age and having trouble establishing care. Indicates that she was told to go to [place] for her care by the health department but does not have transportation. she presented to the ER today worried about her blood pressure and having a feeling that "something is wrong. I just don't feel right. My face is tingling." Her HR was found to be in the 130s in the ER. Past Medical History Cardiac Medical History: Denies: Congestive Heart Failure, Myocardial Infarction, Hypertension Pulmonary Medical History: Denies: Asthma, Bronchitis, Chronic Obstructive Pulmonary Disease (COPD), Pneumonia, Tuberculosis Neurological Medical History: Denies: Seizures Renal/ Medical History: Denies: End Stage Renal Disease GI Medical History: Denies: Cirrhosis, Gastroesophageal Reflux Disease Musculoskeltal Medical History: Denies: Arthritis Psychiatric Medical History: Denies: Bipolar Disorder, Depression Social History Smoking Status: Never Smoker Drugs: None Family History Family History: Reviewed & Not Pertinent Parental Family History Reviewed: Yes Children Family History Reviewed: Yes Sibling(s) Family History Reviewed.: Yes Medication/Allergy Home Medications: Vit/Iron Fumarate/FA [ Tablet] 1 each PO DAILY 03/16/16 Acetaminophen [Tylenol] 650 mg PO Q6 PRN 12/02/16 Labetalol HCl 100 mg PO BID 12/20/16 Allergies/Adverse Reactions: No Known Allergies Allergy (Verified 12/28/16 16:24) Physical Exam - Physical Exam Vital Signs: Temp Pulse Resp BP Pulse Ox 98.9 F 120 H 16 134/87 H 100 12/03/16 15:58 12/03/16 15:58 12/03/16 15:58 12/03/16 15:58 12/03/16 15:58 General appearance: PRESENT: no acute distress, cooperative Pulses: PRESENT: normal radial pulses Vascular exam: PRESENT: normal capillary refill GI/Abdominal exam: PRESENT: soft - obese, uterus above umbilicus Result Laboratory Results: 12/02/16 16:03 12/02/16 15:15 Impressions: Obstetrics Ultrasound 12/02/16 00:00 IMPRESSION: LIMITED OBSTETRICAL ULTRASOUND WITH MEASURED PARAMETERS DELINEATED ABOVE. Trimester of : Third trimester - 28 weeks to delivery. Assessment & Plan - Diagnosis (1) Gestational hypertension Qualifiers: Trimester: third trimester Is this a current diagnosis for this admission?: Yes (2) Hepatitis C carrier Is this a current diagnosis for this admission?: Yes (3) Limited care Qualifiers: Trimester: third trimester Qualified Code(s): O09.33 - Supervision of with insufficient care, third trimester Is this a current diagnosis for this admission?: Yes (4) Tachycardia with heart rate 121-140 beats per minute Is this a current diagnosis for this admission?: Yes - Time Time Spent: 30 to 50 Minutes Critical Time spent with patient: Less than 15 minutes Medications reviewed and adjusted accordingly: Yes Anticipated discharge: Home Within: within 24 hours - Plan Summary Plan Summary: as patient has had poor care and very uncertain as to her ability to comply with outpatient 24 hour urine collection and continuation of care, will admit for observation to collect 24 hour urine protein as well as get cardiology consult due to her repeat episodes of tachycardia since being here.
--- NOTE | 2017-01-08 17:17 | DISCHARGE SUMMARY E ---
Discharge Summary NAME: WILLIAMS RAY : 1990 AGE: 26Y ADMITTED: 12/02/2016 DISCHARGED: 12/03/2016 REASON FOR ADMISSION: A 29-week intrauterine with poor care and inability to finish a 24-hour urine and for observation of her hypertension. HISTORY AND PHYSICAL: See Dr. Metzger's history and physical for details. HOSPITAL COURSE: The patient is admitted to the hospital where she undergoes an obstetrical ultrasound which shows that she is 29 weeks and 2 days' gestation. She is started on a 24-hour urine. She is started on labetalol for blood pressure control. She has a couple episodes of tachycardia for which Cardiology consulted; see their consult note. They required no further interventions during her hospital stay. After completing her 24-hour urine, which showed a total of 230 mg of protein, the patient was discharged home. DISCHARGE INSTRUCTIONS: Discharge patient home. Diet is low-salt diet. Activity is as tolerated. Follow-up interval is 1 week, [facility]. SPECIAL INSTRUCTIONS: The patient was instructed to call MD if temperature greater than 100.5, vaginal bleeding or loss of fluid or contractions occur, and she is also given signs and symptoms of preeclampsia. MEDICATIONS ON DISCHARGE: vitamins and labetalol. DICTATING PHYSICIAN: Chetan Gonzales DO [id number] PHY#: [id number] ID: [id number] JOB#: [id number] ACCT: [id number] cc:Chetan Gonzales D.O. >
== END 2016-12-03 17:05 | disposition home or self-care (01) ==
LOC: LC 14:17 → LR 15:17 → 2N 12-03 00:29
PROVIDERS: ADMIT Obstetrics & Gynecology; ATTEND Obstetrics & Gynecology
DX: O13.3 Gestational [pregnancy-induced] hypertension without significant proteinuria, third trimester (principal); B18.2 Chronic viral hepatitis C; O98.413 Viral hepatitis complicating pregnancy, third trimester; B19.20 Unspecified viral hepatitis C without hepatic coma; O09.33 Supervision of pregnancy with insufficient antenatal care, third trimester; O99.213 Obesity complicating pregnancy, third trimester; E66.01 Morbid (severe) obesity due to excess calories; O26.893 Other specified pregnancy related conditions, third trimester; R00.0 Tachycardia, unspecified; I08.1 Rheumatic disorders of both mitral and tricuspid valves; E83.42 Hypomagnesemia; Z82.49 Family history of ischemic heart disease and other diseases of the circulatory system; Z3A.28 28 weeks gestation of pregnancy; Z87.09 Personal history of other diseases of the respiratory system; Z86.59 Personal history of other mental and behavioral disorders; Z68.41 Body mass index [BMI] 40.0-44.9, adult
CPT/HCPCS: 86900; 94760; 86901; 36415 ×2; 84439; 86850; 83615; 83735; 84156; 84443; 84550; 82570; 85025; 80053; 81001; 80307; 84481; 93306; 76815; 93005; 93010; J0702 ×2; G0378; G0379

== ENCOUNTER 2016-12-19 23:07 | Observation (INO) | payer MEDICAID ==
[2016-12-20 00:17] LABS: ABSOLUTE EOSINOPHILS # (AUTO) 0.1 10^3/uL (0.0-0.6); ABSOLUTE LYMPHOCYTES (AUTO) 2.5 10^3/uL (0.5-4.7); ABSOLUTE MONOCYTES (AUTO) 0.7 10^3/uL (0.1-1.4); ABSOLUTE NEUT (AUTO) 3.1 10^3/uL (1.7-8.2); BASOPHILS % (AUTO) 0.5 % (0-2); EOSINOPHILS % (AUTO) 1.8 % (0-6); HEMATOCRIT 32.8 % (36.0-47.0); HEMOGLOBIN 11.1 g/dL (12.0-15.5); HGB HCT DIFFERENCE 0.5; LYMPHOCYTES % (AUTO) 38.7 % (13-45); MEAN CORPUSCULAR HEMOGLOBIN 28.8 pg (27.0-33.4); MEAN CORPUSCULAR VOLUME 85 fl (80-97); RED BLOOD COUNT 3.86 10^6/uL (3.72-5.28); WHITE BLOOD COUNT 6.5 10^3/uL (4.0-10.5)
[2016-12-20 00:23] LABS: APPEARANCE,URINE SLIGHTLY-CLOUDY; BILIRUBIN,URINE NEGATIVE (NEGATIVE); GLUCOSE, URINE NEGATIVE (NEGATIVE); KETONES,URINE NEGATIVE (NEGATIVE); LEUKOCYTE ESTERASE,URINE NEGATIVE (NEGATIVE); NITRITE,URINE NEGATIVE (NEGATIVE); PROTEIN,URINE 30 mg/dL (NEGATIVE); URINE SPECIFIC GRAVITY 1.013; UROBILINOGEN,URINE NEGATIVE mg/dL (<2.0)
[2016-12-20 00:25] LABS: ALANINE AMINOTRANSFERASE 30 U/L (9-52); ALBUMIN 3.1 g/dL (3.5-5.0); ALKALINE PHOSPHATASE 71 U/L (38-126); ANION GAP 10 (5-19); ASPARTATE AMINO TRANSFERASE 19 U/L (14-36); BILIRUBIN,DIRECT 0.2 mg/dL (0.0-0.4); BILIRUBIN,TOTAL 0.3 mg/dL (0.2-1.3); BLOOD UREA NITROGEN 7 mg/dL (7-20); CALCIUM 9.4 mg/dL (8.4-10.2); CARBON DIOXIDE 21 mmol/L (22-30); CHLORIDE 107 mmol/L (98-107); CREATININE RESULT 0.46 mg/dL (0.52-1.25); GLUCOSE 104 mg/dL (75-110); LDH 420 U/L (313-618); POTASSIUM 4.3 mmol/L (3.6-5.0); SODIUM 137.7 mmol/L (137-145); TOTAL PROTEIN 6.4 g/dL (6.3-8.2); URIC ACID 4.3 mg/dL (2.5-6.2)
[2016-12-20 00:37] LABS: URINE BARBITURATES SCREEN NEGATIVE; URINE METHADONE SCREEN NEGATIVE; URINE OPIATES LOW NEGATIVE; URINE PHENCYCLIDINE SCREEN NEGATIVE
[2016-12-20 00:55] LABS: URINE CREATININE 73.3 mg/dL (16-327); URINE PROTEIN 19.9 mg/dL (<12)
[2016-12-20 02:05] LABS: ADD HIVPANEL? NO; HIV (1 AND 2) ANTIBODY NEGATIVE (NEGATIVE)
[2016-12-20 04:09] LABS: CHLAM PCR NOT DETECTED (NOT DETECT)
[2016-12-20] MEDS ORDERED: LABETALOL HCL 200 MG TABLET PO SCH (09:00)
[2016-12-20] MEDS ORDERED: LABETALOL HCL 200 MG TABLET ONE (09:17)
[2016-12-20] MEDS: LABETALOL HCL 200 MG TABLET PO SCH (22:09)
[2016-12-21 03:33] LABS: URINE PROTEIN 18.3 mg/dL (<12)
[2016-12-21 06:40] LABS: HEPATITIS C VIRUS AB <0.1 s/co ratio (0.0-0.9)
[2016-12-21] MEDS: LABETALOL HCL 200 MG TABLET PO SCH ×2 (09:54→21:49)
--- NOTE | 2016-12-21 11:37 | PDOC PROGRESS REPORT ---
Subjective Progress Note for:: 12/21/16 Subjective:: Pt notes very mild headache...does not need pain med. No visual changes or epigastric pain. No ctxs, bleeding. Notes FM. Physical Exam - Physical Exam Vital Signs: Temp Pulse Resp BP Pulse Ox 98.0 F 110 H 18 133/91 H 99 12/21/16 07:55 12/21/16 07:55 12/21/16 07:55 12/21/16 07:55 12/21/16 07:55 Intake & Output 12/20/16 12/21/16 12/22/16 06:59 06:59 06:59 Intake Total 840 Output Total 2320 Balance -1480 Weight 115.8 kg General appearance: PRESENT: no acute distress - abd soft nontender extrem nontender nst-appropriate for gest age Result Laboratory Results: 12/20/16 00:03 12/20/16 00:03 12/21/16 02:15 Ur 24 Hour Volume 2320 Ur Total Protein 24 Hr 425 H Assessment & Plan - Plan Summary Plan Summary: cont labetolol. Will check greyson. Possible d/c home later today with twice weekly testing and preeclampsia precautions. Discussed only light activity if discharged.
--- NOTE | 2016-12-21 14:01 | RADIOLOGY REPORT (SQ) ---
EXAM DESCRIPTION: U/S OB LIMITED COMPLETED DATE/TIME: 12/21/2016 1:53 pm REASON FOR STUDY: needs FABIANO, Chronic HTN 30+ WEEKS COMPARISON: 12/02/2016. TECHNIQUE: Limited transabdominal grayscale ultrasound for evaluation of specific requested obstetri kb parameters. LIMITATIONS: None. FINDINGS: CERVICAL LENGTH: 3.0 cm. Closed. FABIANO: 8.2 cm. FHR: 175 beats per minute. PRESENTATION: Cephalic. OTHER: No other significant findings. IMPRESSION: LIMITED OBSTETRICAL ULTRASOUND WITH MEASURED PARAMETERS DELINEATED ABOVE. Trimester of : Third trimester - 28 weeks to delivery. TECHNICAL DOCUMENTATION: JOB ID: [id number] [employer]- All Rights Reserved
[2016-12-21] MEDS ORDERED: HYDROXYZINE PAMOATE 50 MG CAPSULE PO PRN (21:10)
[2016-12-21] MEDS ORDERED: ACETAMINOPHEN 100 ML IV ONE (21:30)
[2016-12-21] MEDS ORDERED: ACETAMINOPHEN 325 MG TABLET PO ONE (22:00)
[2016-12-22 06:22] LABS: HEMATOCRIT 31.3 % (36.0-47.0); HEMOGLOBIN 10.7 g/dL (12.0-15.5); HGB HCT DIFFERENCE 0.8; MEAN CORPUSCULAR HEMOGLOBIN 28.7 pg (27.0-33.4); MEAN CORPUSCULAR HGB CONC 34.1 g/dL (32.0-36.0); MEAN CORPUSCULAR VOLUME 84 fl (80-97); RED BLOOD COUNT 3.73 10^6/uL (3.72-5.28); RED CELL DISTRIBUTION WIDTH 14.8 % (11.5-14.0)
[2016-12-22 06:42] LABS: ALANINE AMINOTRANSFERASE 25 U/L (9-52); ALBUMIN 2.9 g/dL (3.5-5.0); ALKALINE PHOSPHATASE 71 U/L (38-126); ANION GAP 7 (5-19); ASPARTATE AMINO TRANSFERASE 18 U/L (14-36); BILIRUBIN,DIRECT 0.2 mg/dL (0.0-0.4); BILIRUBIN,TOTAL 0.4 mg/dL (0.2-1.3); BLOOD UREA NITROGEN 9 mg/dL (7-20); CALCIUM 9.1 mg/dL (8.4-10.2); CARBON DIOXIDE 23 mmol/L (22-30); CHLORIDE 108 mmol/L (98-107); CREATININE RESULT 0.49 mg/dL (0.52-1.25); GLUCOSE 86 mg/dL (75-110); LDH 410 U/L (313-618); POTASSIUM 4.3 mmol/L (3.6-5.0); TOTAL PROTEIN 6.1 g/dL (6.3-8.2)
[2016-12-22 08:05] VITALS: BP 137/74
--- NOTE | 2016-12-22 08:41 | PDOC PROGRESS REPORT ---
Subjective Subjective:: Pt reports no ctx's, vb or lof. Reports good movement No s/s of Pre-E Physical Exam - Physical Exam Vital Signs: Temp Pulse Resp BP Pulse Ox 98.3 F 84 16 137/74 H 99 12/22/16 07:47 12/22/16 07:47 12/22/16 07:47 12/22/16 07:47 12/22/16 07:47 Intake & Output 12/21/16 12/22/16 12/23/16 06:59 06:59 06:59 Intake Total 840 240 Output Total 2320 Balance -1480 240 General appearance: PRESENT: no acute distress, cooperative, well-developed Neurological exam: PRESENT: reflexes normal Result Laboratory Results: 12/22/16 06:01 12/22/16 06:01 12/22/16 12/22/16 06:01 06:01 WBC 6.0 RBC 3.73 Hgb 10.7 L Hct 31.3 L MCV 84 MCH 28.7 MCHC 34.1 RDW 14.8 H Plt Count 207 Sodium 138.0 Potassium 4.3 Chloride 108 H Carbon Dioxide 23 Anion Gap 7 BUN 9 Creatinine 0.49 L Est GFR ( Amer) > 60 Est GFR (Non-Af Amer) > 60 Glucose 86 Calcium 9.1 Total Bilirubin 0.4 AST 18 ALT 25 Alkaline Phosphatase 71 Total Protein 6.1 L Albumin 2.9 L Impressions: Obstetrics Ultrasound 12/21/16 00:00 IMPRESSION: LIMITED OBSTETRICAL ULTRASOUND WITH MEASURED PARAMETERS DELINEATED ABOVE. Trimester of : Third trimester - 28 weeks to delivery. Assessment & Plan - Diagnosis (1) Hepatitis C carrier Is this a current diagnosis for this admission?: Yes (2) Limited care Qualifiers: Trimester: third trimester Qualified Code(s): O09.33 - Supervision of with insufficient care, third trimester Is this a current diagnosis for this admission?: Yes (3) Pre-eclampsia in third trimester Is this a current diagnosis for this admission?: Yes - Time Time Spent with patient: Less than 15 minutes Medications reviewed and adjusted accordingly: Yes Anticipated discharge: Home - Will d/c home Continue Labetalol 200mg bid Pre-E precautions given keep f/u appt on Saturday
[2016-12-22] MEDS: LABETALOL HCL 200 MG TABLET PO SCH (09:32)
== END 2016-12-22 11:50 | disposition home or self-care (01) ==
LOC: LC 23:07 → LR 12-20 01:39 → 2S 12-20 02:59 → LR 12-20 03:40 → 2N 12-20 09:32
PROVIDERS: ADMIT Student in an Organized Health Care Education/Training Program; ATTEND Student in an Organized Health Care Education/Training Program
PROC: 4A0HXCZ Measurement of Products of Conception, Cardiac Rate, External Approach (ICD-10-PCS; principal; 2016-12-19)
DX: O98.413 Viral hepatitis complicating pregnancy, third trimester (principal); B19.20 Unspecified viral hepatitis C without hepatic coma; O09.33 Supervision of pregnancy with insufficient antenatal care, third trimester; O14.93 Unspecified pre-eclampsia, third trimester; Z3A.30 30 weeks gestation of pregnancy
CPT/HCPCS: 59025; 36415 ×2; 83615 ×2; 84156 ×2; 84550; 82570; 85025; 85027; 86762; 86592; 80053 ×2; 81001; 87340; 86701; 80307; 87491; 87591; 86803; 86804; 76815; G0378 ×3; J3490 ×5

== ENCOUNTER 2016-12-25 14:44 | Outpatient (CLI) | payer MEDICAID ==
[2016-12-25 15:27] LABS: APPEARANCE,URINE SLIGHTLY-CLOUDY; BILIRUBIN,URINE NEGATIVE (NEGATIVE); GLUCOSE, URINE NEGATIVE (NEGATIVE); KETONES,URINE NEGATIVE (NEGATIVE); LEUKOCYTE ESTERASE,URINE NEGATIVE (NEGATIVE); NITRITE,URINE NEGATIVE (NEGATIVE); PROTEIN,URINE 100 mg/dL (NEGATIVE); URINE SPECIFIC GRAVITY 1.026; UROBILINOGEN,URINE NEGATIVE mg/dL (<2.0)
[2016-12-25 15:56] LABS: URINE BARBITURATES SCREEN NEGATIVE; URINE METHADONE SCREEN NEGATIVE; URINE OPIATES LOW NEGATIVE; URINE PHENCYCLIDINE SCREEN NEGATIVE
[2016-12-25 16:08] LABS: ABSOLUTE EOSINOPHILS # (AUTO) 0.1 10^3/uL (0.0-0.6); ABSOLUTE LYMPHOCYTES (AUTO) 1.8 10^3/uL (0.5-4.7); ABSOLUTE MONOCYTES (AUTO) 0.6 10^3/uL (0.1-1.4); ABSOLUTE NEUT (AUTO) 3.4 10^3/uL (1.7-8.2); BASOPHILS % (AUTO) 0.5 % (0-2); EOSINOPHILS % (AUTO) 1.2 % (0-6); HEMATOCRIT 31.8 % (36.0-47.0); HEMOGLOBIN 10.9 g/dL (12.0-15.5); HGB HCT DIFFERENCE 0.9; LYMPHOCYTES % (AUTO) 30.4 % (13-45); MEAN CORPUSCULAR HEMOGLOBIN 28.6 pg (27.0-33.4); MEAN CORPUSCULAR HGB CONC 34.2 g/dL (32.0-36.0); MEAN CORPUSCULAR VOLUME 84 fl (80-97); RED CELL DISTRIBUTION WIDTH 14.9 % (11.5-14.0); SEGMENTED NEUTROPHILS % (AUTO) 57.9 % (42-78)
[2016-12-25 16:22] LABS: ALANINE AMINOTRANSFERASE 23 U/L (9-52); ALBUMIN 3.2 g/dL (3.5-5.0); ALKALINE PHOSPHATASE 87 U/L (38-126); ANION GAP 10 (5-19); ASPARTATE AMINO TRANSFERASE 22 U/L (14-36); BILIRUBIN,DIRECT 0.3 mg/dL (0.0-0.4); BILIRUBIN,TOTAL 0.4 mg/dL (0.2-1.3); BLOOD UREA NITROGEN 9 mg/dL (7-20); CALCIUM 9.1 mg/dL (8.4-10.2); CARBON DIOXIDE 20 mmol/L (22-30); CHLORIDE 107 mmol/L (98-107); CREATININE RESULT 0.47 mg/dL (0.52-1.25); GLUCOSE 77 mg/dL (75-110); LDH 460 U/L (313-618); POTASSIUM 4.2 mmol/L (3.6-5.0); SODIUM 136.9 mmol/L (137-145); TOTAL PROTEIN 6.6 g/dL (6.3-8.2); URIC ACID 5.2 mg/dL (2.5-6.2)
--- NOTE | 2016-12-28 12:20 | Admission Physical ---
Datetime Report Generated by CPN: 12/28/2016 12:20 CURRENT ADMISSION Chief Complaint: Signs/Symptoms Gestational HTN Chief Complaint: Other Chief Complaint Other: elevated pulse Indication for Induction: Not Applicable Indication for Induction: Not Applicable Admit Plan: Admit to Unit; Observation/Evaluation Admit Plan: Admit to Unit ALLERGIES Medication Allergies: No Medication Allergies: No Known Allergies (12/25/2016) Medication Allergies: No Known Allergies (12/20/2016) Medication Allergies: No Known Allergies (12/02/2016) Medication Allergies: No Known Allergies (09/18/2016) Medication Allergies: No Known Allergies (09/04/2016) Medication Allergies: No Known Allergies (08/18/2016) Medication Allergies: No Known Allergies (07/08/2016) Latex: No Latex Allergies Food Allergies: None Environmental Allergies: None OBSTETRICAL HISTORY EDC: 02/23/2017 00:00 : 4 Para: 3 Term: 2 : 1 SAB: 0 IAB: 0 Ectopic: 0 Livin Cesareans: 0 VBACs: 0 Multiple Births: 0 Gestational Diabetes: No Rh Sensitization: No Incompetent Cervix: No MK: No Infertility: No ART Treatment: No Uterine Anomaly: No IUGR: No Hx Previous C/S: No Macrosomia: No Hx Loss/Stillborn: No PIH: Yes Hx : No Placenta Previa/Abruption: No Depression/PP Depression: No PTL/PROM: Yes Post Hemorrhage: No Current Procedures: Ultrasound; NST Obstetrical History Comments: G1 - 2009 - NVSD at 39wks, 7lbs 2oz G2 - 2011 - NVSD at 29wks, IOL Preeclampsia, 2lbs G3 - 2015 - NVDS at 37wks, IOL Gestational HTN, 7lbs, Increased bleeding (uterine sweep for clots) G4 - Current - close interval , inadequate PNC, HTN SEE RECORDS Alcohol: No Marijuana : No Cocaine: No Other Illicit Drugs: No Cigarettes: Never Smoker. [id number] MEDICAL HISTORY Diabetes: No Blood Transfusion: No Pulmonary Disease (Asthma, TB): Yes Breast Disease: No Hypertension: No Plow Holder Surgery: No Heart Disease: No Hosp/Surgery: Yes Autoimmune Disorder: No Anesthetic Complications: No Kidney Disease: No Abnormal Pap Smear: No Neuro/Epilepsy: No Psychiatric Disorders: No Other Medical Diseases: No Hepatitis/Liver Disease: No Significant Family History: No Varicosities/Phlebitis: No Trauma/Violence : No Thyroid Dysfunction: No Medical History Comments: Hospitalzied for childbirth asthma cyst removal from wrist age 11 INFECTIOUS HISTORY Gonorrhea: No Genital Herpes: No Chlamydia: No Tuberculosis: No Syphilis: No Hepatitis: Yes HIV/AIDS Exposure: No Rash or Viral Illness: No HPV: No Infectious History Comments: hepatitis c positive per previous records but states that HCV RNA quant not detected PHYSICAL EXAM General: Normal General: Normal HEENT: Normal HEENT: Normal Neurologic: Normal Neurologic: Normal Thyroid: Normal Thyroid: Normal Heart: Normal Heart: Normal Lungs: Normal Lungs: Normal Breast: Deferred Breast: Normal Back: Normal Back: Normal Abdomen: Normal Abdomen: Normal Genitourinary Exam: Normal Genitourinary Exam: Normal Extremities: Normal Extremities: Normal DTRs: Normal DTRs: Normal Pelvic Type: Adequate Pelvic Type: Adequate Vital Signs: Reviewed Vital Signs: Reviewed Details Vital Signs: severe range BPs on admission Details Vital Signs: severe range pressures. VAGINAL EXAM Dilatation: 0 Effacement: 0 Station: -4 FETUS A EGA: 30.5 EGA: 28.1 Monitoring: External US Monitoring: External US FHR- Baseline: 150 Variability: Minimal - Undetectable to <=5bpm Accelerations: 10X10 Decelerations: None FHR Category: Category I Admit Comment: 25yo at 30+5 ega by US at 22wks which is c/w bedside US done in ER on 08/18/2016 (approx 13wks measuring BPD by notes JERE 02/23/2017). JERE by 22+4ega US on 10/24/2016 is 02/23/2017. REviewed BPs in ER and c/w CHTN - Labetolol 100mg BID started last visit. She reports seeing [facility] once but report of appts is unclear to pt. She reports "being transferred to [facility] due to HTN". She never went due to unable to make drive. She was never sent to [facility]. She reports that she still does not have insurance. Pt presented last evening with feeling poorly, MORALES, spots in vision and had severe range BPs on admission. Labs unremarkable except for P:C ratio of 0.3. Will admit for observation and optimization of Labetolol and repeat 24 hr UTP. Stressed need to obtain care to patient. BPs improved and stable and pt will be moved to floor for continued observation. Admit Comment: patient has h/o Pre E in G1 and GHTN in G2. feels that her pulse has been elevated for several days. has had intermittent MORALES for length of . VICTORIANO has transferred her care to [place] but patient has not been due to transportation issues. Has had limitied care this . Dating is by a 22 w sono that is c/w her stated JERE which patient indicates was given to her by an ED physician doing a bedside sono in the first trimester. Will admit for obs and for ACS protocol. Will start low dose antihypertensives to keep bps in the 150/90s range, will do 24 hour urine. If patient progresses and seems to be in danger of Severe PreE and thereby need for delivery will initiate transfer to [facility]. PLANS FOR LABOR AND DELIVERY Labor and Delivery: None Pain Management: Epidural Feeding Preference: Breast Benefit of Breast Feed Discussed: Yes Circumcision: N/A INFORMED CONSENT Informed Consent Obtained: Risks, Benefits and Alternatives Discussed Signature: with User ID: [email or web address] Signature: with User ID: Andria : with User ID: Andria
== END 2016-12-25 16:53 | disposition home or self-care (01) ==
LOC: LC 14:44
PROVIDERS: ATTEND Obstetrics & Gynecology
PROC: 4A1HXCZ Monitoring of Products of Conception, Cardiac Rate, External Approach (ICD-10-PCS; principal; 2016-12-25)
DX: O13.3 Gestational [pregnancy-induced] hypertension without significant proteinuria, third trimester (principal); Z3A.31 31 weeks gestation of pregnancy
CPT/HCPCS: 36415; 80053; 80307; 81001; 83615; 84550; 85025

== ENCOUNTER 2016-12-28 15:38 | Inpatient (IN) | payer MEDICAID ==
[2016-12-28 16:19] LABS: APPEARANCE,URINE CLOUDY; BILIRUBIN,URINE NEGATIVE (NEGATIVE); GLUCOSE, URINE NEGATIVE (NEGATIVE); KETONES,URINE TRACE mg/dL (NEGATIVE); LEUKOCYTE ESTERASE,URINE NEGATIVE (NEGATIVE); NITRITE,URINE NEGATIVE (NEGATIVE); PROTEIN,URINE 100 mg/dL (NEGATIVE); URINE SPECIFIC GRAVITY 1.034; UROBILINOGEN,URINE NEGATIVE mg/dL (<2.0)
[2016-12-28 16:29] LABS: URINE BARBITURATES SCREEN NEGATIVE; URINE METHADONE SCREEN NEGATIVE; URINE OPIATES LOW NEGATIVE; URINE PHENCYCLIDINE SCREEN NEGATIVE
[2016-12-28 16:30] LABS: ABSOLUTE EOSINOPHILS # (AUTO) 0.1 10^3/uL (0.0-0.6); ABSOLUTE LYMPHOCYTES (AUTO) 2.4 10^3/uL (0.5-4.7); ABSOLUTE MONOCYTES (AUTO) 0.6 10^3/uL (0.1-1.4); ABSOLUTE NEUT (AUTO) 3.2 10^3/uL (1.7-8.2); BASOPHILS % (AUTO) 0.4 % (0-2); EOSINOPHILS % (AUTO) 0.9 % (0-6); HEMATOCRIT 33.9 % (36.0-47.0); HEMOGLOBIN 11.5 g/dL (12.0-15.5); HGB HCT DIFFERENCE 0.6; MEAN CORPUSCULAR HEMOGLOBIN 28.7 pg (27.0-33.4); MEAN CORPUSCULAR HGB CONC 33.9 g/dL (32.0-36.0); MEAN CORPUSCULAR VOLUME 85 fl (80-97); RED CELL DISTRIBUTION WIDTH 14.8 % (11.5-14.0); SEGMENTED NEUTROPHILS % (AUTO) 51.7 % (42-78); WHITE BLOOD COUNT 6.2 10^3/uL (4.0-10.5)
[2016-12-28 16:49] LABS: ALANINE AMINOTRANSFERASE 34 U/L (9-52); ALBUMIN 3.4 g/dL (3.5-5.0); ALKALINE PHOSPHATASE 92 U/L (38-126); ANION GAP 8 (5-19); ASPARTATE AMINO TRANSFERASE 24 U/L (14-36); BILIRUBIN,DIRECT 0.2 mg/dL (0.0-0.4); BILIRUBIN,TOTAL 0.4 mg/dL (0.2-1.3); BLOOD UREA NITROGEN 11 mg/dL (7-20); CALCIUM 9.5 mg/dL (8.4-10.2); CARBON DIOXIDE 20 mmol/L (22-30); CHLORIDE 108 mmol/L (98-107); CREATININE RESULT 0.57 mg/dL (0.52-1.25); GLUCOSE 79 mg/dL (75-110); LDH 535 U/L (313-618); POTASSIUM 4.8 mmol/L (3.6-5.0); SODIUM 136.4 mmol/L (137-145); TOTAL PROTEIN 6.7 g/dL (6.3-8.2)
[2016-12-28 16:52] LABS: URINE CREATININE 209.4 mg/dL (16-327); URINE PROTEIN 75.7 mg/dL (<12)
[2016-12-28 18:13] LABS: URINE PROTEIN 72.3 mg/dL (<12)
[2016-12-28] MEDS ORDERED: HYDRALAZINE HCL INJ/PF 20 MG/1 ML SDV ONE (18:46)
[2016-12-28] MEDS ORDERED: ACETAMINOPHEN 325 MG TABLET ONE (18:46)
[2016-12-28] MEDS ORDERED: BETAMET ACET/BETAMET NA INJ 6 MG/1 ML ONE (19:07)
[2016-12-28] MEDS ORDERED: LABETALOL HCL 200 MG TABLET ONE (20:41)
[2016-12-28] MEDS ORDERED: CITRIC ACID/SODIUM CITRATE ORAL SOLN 15 ML UDCUP ONE (20:41)
[2016-12-28] MEDS ORDERED: CITRIC ACID/SODIUM CITRATE ORAL SOLN 15 ML UDCUP PO ONE (20:43)
[2016-12-29 06:23] LABS: ABSOLUTE LYMPHOCYTES (AUTO) 1.2 10^3/uL (0.5-4.7); ABSOLUTE MONOCYTES (AUTO) 0.3 10^3/uL (0.1-1.4); BASOPHILS % (AUTO) 0.2 % (0-2); HEMATOCRIT 31.9 % (36.0-47.0); HGB HCT DIFFERENCE 1.1; LYMPHOCYTES % (AUTO) 18.9 % (13-45); MEAN CORPUSCULAR HEMOGLOBIN 28.7 pg (27.0-33.4); MEAN CORPUSCULAR HGB CONC 34.5 g/dL (32.0-36.0); MEAN CORPUSCULAR VOLUME 83 fl (80-97); MONOCYTES % (AUTO) 4.5 % (3-13); RED BLOOD COUNT 3.83 10^6/uL (3.72-5.28); RED CELL DISTRIBUTION WIDTH 14.9 % (11.5-14.0); SEGMENTED NEUTROPHILS % (AUTO) 76.4 % (42-78); WHITE BLOOD COUNT 6.6 10^3/uL (4.0-10.5)
[2016-12-29 06:37] LABS: ALANINE AMINOTRANSFERASE 29 U/L (9-52); ALBUMIN 3.2 g/dL (3.5-5.0); ALKALINE PHOSPHATASE 86 U/L (38-126); ANION GAP 9 (5-19); ASPARTATE AMINO TRANSFERASE 20 U/L (14-36); BILIRUBIN,DIRECT 0.2 mg/dL (0.0-0.4); BILIRUBIN,TOTAL 0.5 mg/dL (0.2-1.3); BLOOD UREA NITROGEN 9 mg/dL (7-20); CALCIUM 9.4 mg/dL (8.4-10.2); CARBON DIOXIDE 21 mmol/L (22-30); CHLORIDE 107 mmol/L (98-107); CREATININE RESULT 0.48 mg/dL (0.52-1.25); GLUCOSE 101 mg/dL (75-110); LDH 449 U/L (313-618); POTASSIUM 4.8 mmol/L (3.6-5.0); SODIUM 136.6 mmol/L (137-145); TOTAL PROTEIN 6.4 g/dL (6.3-8.2); URIC ACID 5.7 mg/dL (2.5-6.2)
[2016-12-29] MEDS: LABETALOL HCL 200 MG TABLET PO SCH ×2 (09:16→21:58)
--- NOTE | 2016-12-29 10:41 | PDOC PROGRESS REPORT ---
Subjective Progress Note for:: 12/29/16 Subjective:: headache resolved. Now have some cramping. Labs reviewed and stable. BPs stable at this time. Physical Exam - Physical Exam Vital Signs: Temp Pulse Resp BP Pulse Ox 98.5 F 89 18 137/92 H 100 12/29/16 08:36 12/29/16 08:36 12/29/16 08:36 12/29/16 08:36 12/29/16 08:36 Intake & Output 12/28/16 12/29/16 12/30/16 06:59 06:59 06:59 Intake Total 565 Output Total 1550 Balance -985 Weight 116.15 kg General appearance: PRESENT: no acute distress Head exam: PRESENT: atraumatic Teeth exam: PRESENT: dental caries Pulses: PRESENT: normal radial pulses Vascular exam: PRESENT: normal capillary refill GI/Abdominal exam: PRESENT: soft - obese, gravid, uterus normal for gestational age Extremities exam: PRESENT: full ROM, pedal edema, +1 edema Musculoskeletal exam: PRESENT: ambulatory, full ROM Neurological exam: PRESENT: alert, oriented to person, oriented to place, oriented to time Result Laboratory Results: 12/29/16 06:02 12/29/16 06:02 12/27/16 12/28/16 12/28/16 12:30 15:55 16:13 WBC 6.2 RBC 4.00 Hgb 11.5 L Hct 33.9 L MCV 85 MCH 28.7 MCHC 33.9 RDW 14.8 H Plt Count 256 Seg Neutrophils % 51.7 Lymphocytes % 38.0 Monocytes % 9.0 Eosinophils % 0.9 Basophils % 0.4 Absolute Neutrophils 3.2 Absolute Lymphocytes 2.4 Absolute Monocytes 0.6 Absolute Eosinophils 0.1 Absolute Basophils 0.0 Sodium Potassium Chloride Carbon Dioxide Anion Gap BUN Creatinine Est GFR ( Amer) Est GFR (Non-Af Amer) Glucose Uric Acid Calcium Total Bilirubin AST ALT Alkaline Phosphatase Total Protein Albumin Urine Color YELLOW Urine Appearance CLOUDY Urine pH 5.0 Ur Specific [place] 1.034 Urine Protein 100 H Urine Glucose (UA) NEGATIVE Urine Ketones TRACE H Urine Blood NEGATIVE Urine Nitrite NEGATIVE Ur Leukocyte Esterase NEGATIVE Urine WBC (Auto) 3 Urine RBC (Auto) 2 Ur 24 Hour Volume 1150 Ur Total Protein 24 Hr 831 H 08/04/17 08/05/17 08/05/17 16:13 06:02 06:02 WBC 6.6 RBC 3.83 Hgb 11.0 L Hct 31.9 L MCV 83 MCH 28.7 MCHC 34.5 RDW 14.9 H Plt Count 256 Seg Neutrophils % 76.4 Lymphocytes % 18.9 Monocytes % 4.5 Eosinophils % 0.0 Basophils % 0.2 Absolute Neutrophils 5.0 Absolute Lymphocytes 1.2 Absolute Monocytes 0.3 Absolute Eosinophils 0.0 Absolute Basophils 0.0 Sodium 136.4 L 136.6 L Potassium 4.8 4.8 Chloride 108 H 107 Carbon Dioxide 20 L 21 L Anion Gap 8 9 BUN 11 9 Creatinine 0.57 0.48 L Est GFR ( Amer) > 60 > 60 Est GFR (Non-Af Amer) > 60 > 60 Glucose 79 101 Uric Acid 6.0 5.7 Calcium 9.5 9.4 Total Bilirubin 0.4 0.5 AST 24 20 ALT 34 29 Alkaline Phosphatase 92 86 Total Protein 6.7 6.4 Albumin 3.4 L 3.2 L Urine Color Urine Appearance Urine pH Ur Specific [place] Urine Protein Urine Glucose (UA) Urine Ketones Urine Blood Urine Nitrite Ur Leukocyte Esterase Urine WBC (Auto) Urine RBC (Auto) Ur 24 Hour Volume Ur Total Protein 24 Hr Assessment & Plan - Diagnosis (1) Gestational hypertension Is this a current diagnosis for this admission?: Yes (2) Limited care Is this a current diagnosis for this admission?: Yes (3) Pre-eclampsia in third trimester Is this a current diagnosis for this admission?: Yes (4) Essential hypertension affecting in third trimester Is this a current diagnosis for this admission?: Yes - Inpatient Certification Based on my medical assessment, after consideration of the patient's comorbidities, presenting symptoms, or acuity I expect that the services needed warrant INPATIENT care.: Yes I certify that my determination is in accordance with my understanding of Medicare's requirements for reasonable and necessary INPATIENT services [42 CFR 412.3e].: Yes Medical Necessity: Failure to Improve With Outpatient Therapy, Need Close Monitoring Due to Risk of Patient Decompensation, Risk of Complication if Not Cared For in Hospital - I feel that patient's risks for developing sudden onset of PreEclampsia with severe features/HELLP/Eclampsia are significant secondary to her history and difficulty with compliance of care on outpatient basis. recommend continued monitoring in hospital until able to sufficiently reassure of likelihood condition stability or worsening of condition making delivery necessary.
[2016-12-29] MEDS ORDERED: HYDROXYZINE PAMOATE 50 MG CAPSULE PO ONE (11:00)
[2016-12-29] MEDS: ACETAMINOPHEN 325 MG TABLET PO PRN (22:56)
[2016-12-30 06:23] LABS: HEMATOCRIT 29.2 % (36.0-47.0); HEMOGLOBIN 10.1 g/dL (12.0-15.5); HGB HCT DIFFERENCE 1.1; MEAN CORPUSCULAR HGB CONC 34.4 g/dL (32.0-36.0); MEAN CORPUSCULAR VOLUME 84 fl (80-97); RED BLOOD COUNT 3.47 10^6/uL (3.72-5.28); RED CELL DISTRIBUTION WIDTH 15.1 % (11.5-14.0); WHITE BLOOD COUNT 8.8 10^3/uL (4.0-10.5)
[2016-12-30 06:45] LABS: ALANINE AMINOTRANSFERASE 22 U/L (9-52); ALBUMIN 2.8 g/dL (3.5-5.0); ALKALINE PHOSPHATASE 72 U/L (38-126); ANION GAP 6 (5-19); ASPARTATE AMINO TRANSFERASE 16 U/L (14-36); BILIRUBIN,DIRECT 0.2 mg/dL (0.0-0.4); BILIRUBIN,TOTAL 0.3 mg/dL (0.2-1.3); BLOOD UREA NITROGEN 12 mg/dL (7-20); CALCIUM 8.7 mg/dL (8.4-10.2); CARBON DIOXIDE 22 mmol/L (22-30); CHLORIDE 111 mmol/L (98-107); CREATININE RESULT 0.53 mg/dL (0.52-1.25); GLUCOSE 96 mg/dL (75-110); LDH 420 U/L (313-618); POTASSIUM 4.9 mmol/L (3.6-5.0); SODIUM 138.6 mmol/L (137-145); TOTAL PROTEIN 5.8 g/dL (6.3-8.2); URIC ACID 5.5 mg/dL (2.5-6.2)
[2016-12-30] MEDS: ACETAMINOPHEN 325 MG TABLET PO PRN ×2 (09:31→16:08)
[2016-12-30] MEDS: LABETALOL HCL 200 MG TABLET PO SCH ×2 (09:32→17:07)
--- NOTE | 2016-12-30 11:42 | PDOC PROGRESS REPORT ---
Subjective Progress Note for:: 12/30/16 Subjective:: MORALES improved with fioricet. denie blurry vision, denies RUQ pain. +FM Physical Exam - Physical Exam Vital Signs: Temp Pulse Resp BP Pulse Ox 98.7 F 68 16 154/103 H 98 12/30/16 08:10 12/30/16 08:10 12/30/16 08:10 12/30/16 08:10 12/30/16 08:10 Intake & Output 12/29/16 12/30/16 12/31/16 06:59 06:59 06:59 Intake Total 565 960 Output Total 1550 900 Balance -985 60 Weight 116.15 kg General appearance: PRESENT: no acute distress Head exam: PRESENT: atraumatic, normocephalic Eye exam: ABSENT: scleral icterus Neck exam: PRESENT: full ROM. ABSENT: carotid bruit, JVD, lymphadenopathy, thyromegaly Respiratory exam: PRESENT: clear to auscultation mehul, symmetrical, unlabored Cardiovascular exam: PRESENT: bradycardia Pulses: PRESENT: normal dorsalis pedis pul, +2 pedal pulses bilateral Vascular exam: PRESENT: normal capillary refill GI/Abdominal exam: PRESENT: normal bowel sounds, soft. ABSENT: distended, guarding, mass, organolmegaly, rebound, tenderness Rectal exam: PRESENT: deferred Extremities exam: PRESENT: full ROM. ABSENT: calf tenderness, clubbing, pedal edema Musculoskeletal exam: PRESENT: ambulatory Neurological exam: PRESENT: alert, awake, oriented to person, oriented to place , oriented to time, oriented to situation, CN II-XII grossly intact. ABSENT: motor sensory deficit Psychiatric exam: PRESENT: appropriate affect, normal mood. ABSENT: homicidal ideation, suicidal ideation Skin exam: PRESENT: dry, intact, warm. ABSENT: cyanosis, rash Result Laboratory Results: 12/30/16 06:04 12/30/16 06:04 12/30/16 12/30/16 06:04 06:04 WBC 8.8 RBC 3.47 L Hgb 10.1 L Hct 29.2 L MCV 84 MCH 29.0 MCHC 34.4 RDW 15.1 H Plt Count 239 Sodium 138.6 Potassium 4.9 Chloride 111 H Carbon Dioxide 22 Anion Gap 6 BUN 12 Creatinine 0.53 Est GFR ( Amer) > 60 Est GFR (Non-Af Amer) > 60 Glucose 96 Uric Acid 5.5 Calcium 8.7 Total Bilirubin 0.3 AST 16 ALT 22 Alkaline Phosphatase 72 Total Protein 5.8 L Albumin 2.8 L Status: Imported from PACS Assessment & Plan - Diagnosis (1) Essential hypertension affecting in third trimester Is this a current diagnosis for this admission?: YesPlan: Continue Labetolol. Currently on 200mg po BID Will increase to 200mg po TID. May need to add procardia. (2) Pre-eclampsia in third trimester Is this a current diagnosis for this admission?: YesPlan: Currently asymtomatic. Deliver if severe features. May need to be admitted until delivery. Will try to adjust BP meds. Increase labetolol - may need to add procardia. - Time Time Spent with patient: 15-24 minutes Critical Time spent with patient: Less than 15 minutes Medications reviewed and adjusted accordingly: Yes Anticipated discharge: Home Within: Other - when stable
[2016-12-30] MEDS ORDERED: LABETALOL HCL 200 MG TABLET PO SCH (14:00)
[2016-12-31] MEDS: LABETALOL HCL 200 MG TABLET PO SCH ×3 (02:22→17:31)
[2016-12-31] MEDS: ACETAMINOPHEN 325 MG TABLET PO PRN ×3 (02:33→18:58)
--- NOTE | 2016-12-31 11:09 | PDOC PROGRESS REPORT ---
Subjective Progress Note for:: 12/31/16 Subjective:: Pt notes some visual changes as well as mild left sided headache whcih she attributes to tooth pain. Physical Exam - Physical Exam Vital Signs: Temp Pulse Resp BP Pulse Ox 98.1 F 73 18 162/96 H 99 12/31/16 08:22 12/31/16 08:22 12/31/16 08:22 12/31/16 08:22 12/31/16 08:22 Intake & Output 12/30/16 12/31/16 01/01/17 06:59 06:59 06:59 Intake Total 960 3540 Output Total 900 2655 Balance 60 885 General appearance: PRESENT: no acute distress GI/Abdominal exam: PRESENT: normal bowel sounds, soft. ABSENT: distended, guarding, mass, organolmegaly, rebound, tenderness Gentrourinary exam: PRESENT: other - sve-1-2/50/highsoft/mid Result Laboratory Results: 12/30/16 06:04 12/30/16 06:04 Assessment & Plan - Diagnosis (1) Essential hypertension affecting in third trimester Is this a current diagnosis for this admission?: Yes (2) Pre-eclampsia in third trimester Is this a current diagnosis for this admission?: Yes - Plan Summary Plan Summary: pt now with completed steroids. Had severe range bp this am despite increasing bp meds yesterday and visual changes as well as mild MORALES. Given superimposed preeclampsia will move toward delivery-transfer to L and D for induction, gbs prophylaxis, magnesium in labor. Recheck preeclampsia labs today.
[2016-12-31 11:16] LABS: HEMATOCRIT 32.6 % (36.0-47.0); HGB HCT DIFFERENCE 0.4; MEAN CORPUSCULAR HEMOGLOBIN 28.8 pg (27.0-33.4); MEAN CORPUSCULAR HGB CONC 33.7 g/dL (32.0-36.0); MEAN CORPUSCULAR VOLUME 86 fl (80-97); RED BLOOD COUNT 3.81 10^6/uL (3.72-5.28); RED CELL DISTRIBUTION WIDTH 14.7 % (11.5-14.0); WHITE BLOOD COUNT 7.9 10^3/uL (4.0-10.5)
[2016-12-31 11:39] LABS: ALANINE AMINOTRANSFERASE 21 U/L (9-52); ALBUMIN 3.1 g/dL (3.5-5.0); ALKALINE PHOSPHATASE 79 U/L (38-126); ANION GAP 10 (5-19); ASPARTATE AMINO TRANSFERASE 18 U/L (14-36); BILIRUBIN,DIRECT 0.3 mg/dL (0.0-0.4); BILIRUBIN,TOTAL 0.3 mg/dL (0.2-1.3); BLOOD UREA NITROGEN 12 mg/dL (7-20); CALCIUM 9.3 mg/dL (8.4-10.2); CARBON DIOXIDE 21 mmol/L (22-30); CHLORIDE 108 mmol/L (98-107); GLUCOSE 94 mg/dL (75-110); LDH 536 U/L (313-618); POTASSIUM 4.3 mmol/L (3.6-5.0); SODIUM 138.6 mmol/L (137-145); TOTAL PROTEIN 6.4 g/dL (6.3-8.2); URIC ACID 5.3 mg/dL (2.5-6.2)
[2016-12-31] MEDS ORDERED: MAGNESIUM SULFATE 4 GM/100 ML RTUPB IV ONE (14:03)
[2016-12-31] MEDS ORDERED: PENICILLIN G-K 5 MILLION UNIT VIAL ONE ×3 (14:03→23:15)
[2016-12-31] MEDS ORDERED: DINOPROSTONE 10 MG VAGINAL INSERT.SR ONE (14:04)
[2016-12-31] MEDS ORDERED: PENICILLIN G POTASSIUM 5,000,000 UNIT in DEXTROSE 5%-WATER 100 ML IV ONE (14:30)
[2016-12-31] MEDS ORDERED: OXYCODONE HCL IR 5 MG TABLET ONE (14:59)
[2016-12-31] MEDS ORDERED: RINGERS SOLUTION,LACTATED 300 ML IV ONE (15:28)
[2016-12-31] MEDS ORDERED: DINOPROSTONE 10 MG VAGINAL INSERT.SR PV PRN (15:28)
[2016-12-31] MEDS ORDERED: LABETALOL HCL 200 MG TABLET ONE (17:32)
[2016-12-31] MEDS: RINGERS SOLUTION,LACTATED 1,000 ML IV PRN (18:54)
[2016-12-31] MEDS: PENICILLIN G POTASSIUM 2,500,000 UNIT in DEXTROSE 5%-WATER 50 ML IV SCH ×2 (18:55→23:21)
[2016-12-31] MEDS ORDERED: ACETAMINOPHEN 325 MG TABLET ONE (19:00)
[2016-12-31] MEDS ORDERED: ZOLPIDEM TARTRATE 5 MG TABLET ONE (21:43)
[2017-01-01] MEDS ORDERED: MAGNESIUM SULFATE 0 GM/0 ML RTUPB IV ONE (01:16)
[2017-01-01] MEDS: LABETALOL HCL 200 MG TABLET PO SCH ×3 (01:27→17:12)
[2017-01-01] MEDS ORDERED: LABETALOL HCL 200 MG TABLET ONE ×3 (01:28→17:13)
[2017-01-01] MEDS: MAGNESIUM SULFATE 20 GM/500 ML RTUINJ IV PRN ×3 (01:40→20:16)
[2017-01-01] MEDS ORDERED: HYDRALAZINE HCL INJ/PF 20 MG/1 ML SDV ONE (03:04)
[2017-01-01] MEDS ORDERED: PENICILLIN G-K 5 MILLION UNIT VIAL ONE ×3 (03:34→07:12)
[2017-01-01] MEDS: PENICILLIN G POTASSIUM 2,500,000 UNIT in DEXTROSE 5%-WATER 50 ML IV SCH ×3 (03:37→11:11)
[2017-01-01] MEDS ORDERED: OXYTOCIN/NORMAL SALINE 20 UNIT/1,000 ML RTUINJ ONE (03:45)
[2017-01-01] MEDS ORDERED: OXYCODONE HCL IR 5 MG TABLET ONE ×2 (05:12→12:04)
[2017-01-01] MEDS ORDERED: OXYCODONE HCL IR 5 MG TABLET PO ONE ×2 (05:17→11:55)
[2017-01-01] MEDS ORDERED: MISOPROSTOL 0.1 MG TABLET ONE ×4 (07:23→15:33)
[2017-01-01 07:42] LABS: ABSOLUTE EOSINOPHILS # (AUTO) 0.1 10^3/uL (0.0-0.6); ABSOLUTE LYMPHOCYTES (AUTO) 2.1 10^3/uL (0.5-4.7); ABSOLUTE MONOCYTES (AUTO) 0.7 10^3/uL (0.1-1.4); ABSOLUTE NEUT (AUTO) 5.7 10^3/uL (1.7-8.2); BASOPHILS % (AUTO) 0.4 % (0-2); EOSINOPHILS % (AUTO) 0.7 % (0-6); HEMATOCRIT 32.3 % (36.0-47.0); HEMOGLOBIN 11.2 g/dL (12.0-15.5); HGB HCT DIFFERENCE 1.3; MEAN CORPUSCULAR HEMOGLOBIN 28.9 pg (27.0-33.4); MEAN CORPUSCULAR HGB CONC 34.5 g/dL (32.0-36.0); MEAN CORPUSCULAR VOLUME 84 fl (80-97); MONOCYTES % (AUTO) 8.4 % (3-13); RED BLOOD COUNT 3.86 10^6/uL (3.72-5.28); SEGMENTED NEUTROPHILS % (AUTO) 66.5 % (42-78); WHITE BLOOD COUNT 8.5 10^3/uL (4.0-10.5)
[2017-01-01 07:50] LABS: ALANINE AMINOTRANSFERASE 26 U/L (9-52); ALBUMIN 3.2 g/dL (3.5-5.0); ALKALINE PHOSPHATASE 96 U/L (38-126); ANION GAP 8 (5-19); ASPARTATE AMINO TRANSFERASE 19 U/L (14-36); BILIRUBIN,DIRECT 0.3 mg/dL (0.0-0.4); BILIRUBIN,TOTAL 0.4 mg/dL (0.2-1.3); BLOOD UREA NITROGEN 10 mg/dL (7-20); CALCIUM 8.2 mg/dL (8.4-10.2); CARBON DIOXIDE 21 mmol/L (22-30); CHLORIDE 105 mmol/L (98-107); CREATININE RESULT 0.56 mg/dL (0.52-1.25); GLUCOSE 81 mg/dL (75-110); LDH 546 U/L (313-618); POTASSIUM 4.4 mmol/L (3.6-5.0); SODIUM 134.3 mmol/L (137-145); TOTAL PROTEIN 6.6 g/dL (6.3-8.2); URIC ACID 5.6 mg/dL (2.5-6.2)
[2017-01-01] MEDS ORDERED: ONDANSETRON 4 MG TAB.RAPDIS PO ONE (07:52)
[2017-01-01] MEDS ORDERED: ONDANSETRON 4 MG TAB.RAPDIS ONE (07:57)
[2017-01-01] MEDS: ACETAMINOPHEN 325 MG TABLET PO PRN ×3 (09:00→21:15)
[2017-01-01] MEDS ORDERED: ACETAMINOPHEN 325 MG TABLET ONE ×3 (09:01→21:16)
[2017-01-01] MEDS ORDERED: MISOPROSTOL 0.1 MG TABLET PO ONE ×2 (11:19→15:30)
[2017-01-01] MEDS ORDERED: ONDANSETRON HCL INJ/PF 4 MG/2 ML SDV IV ONE (13:30)
[2017-01-01] MEDS ORDERED: ONDANSETRON HCL INJ/PF 4 MG/2 ML SDV ONE (14:22)
[2017-01-01] MEDS ORDERED: DINOPROSTONE 10 MG VAGINAL INSERT.SR ONE (19:41)
[2017-01-01 20:26] LABS: ABSOLUTE EOSINOPHILS # (AUTO) 0.1 10^3/uL (0.0-0.6); ABSOLUTE MONOCYTES (AUTO) 0.8 10^3/uL (0.1-1.4); ABSOLUTE NEUT (AUTO) 4.7 10^3/uL (1.7-8.2); BASOPHILS % (AUTO) 0.3 % (0-2); EOSINOPHILS % (AUTO) 0.7 % (0-6); HEMATOCRIT 33.2 % (36.0-47.0); HEMOGLOBIN 11.3 g/dL (12.0-15.5); HGB HCT DIFFERENCE 0.7; LYMPHOCYTES % (AUTO) 26.4 % (13-45); MEAN CORPUSCULAR HEMOGLOBIN 28.8 pg (27.0-33.4); MEAN CORPUSCULAR HGB CONC 34.1 g/dL (32.0-36.0); MEAN CORPUSCULAR VOLUME 84 fl (80-97); MONOCYTES % (AUTO) 10.3 % (3-13); RED BLOOD COUNT 3.94 10^6/uL (3.72-5.28); RED CELL DISTRIBUTION WIDTH 14.8 % (11.5-14.0); SEGMENTED NEUTROPHILS % (AUTO) 62.3 % (42-78); WHITE BLOOD COUNT 7.5 10^3/uL (4.0-10.5)
[2017-01-01 20:40] LABS: ALANINE AMINOTRANSFERASE 23 U/L (9-52); ALBUMIN 3.2 g/dL (3.5-5.0); ALKALINE PHOSPHATASE 92 U/L (38-126); ANION GAP 9 (5-19); ASPARTATE AMINO TRANSFERASE 18 U/L (14-36); BILIRUBIN,DIRECT 0.3 mg/dL (0.0-0.4); BILIRUBIN,TOTAL 0.4 mg/dL (0.2-1.3); BLOOD UREA NITROGEN 14 mg/dL (7-20); CALCIUM 8.4 mg/dL (8.4-10.2); CARBON DIOXIDE 22 mmol/L (22-30); CHLORIDE 103 mmol/L (98-107); CREATININE RESULT 0.68 mg/dL (0.52-1.25); GLUCOSE 96 mg/dL (75-110); LDH 483 U/L (313-618); POTASSIUM 4.8 mmol/L (3.6-5.0); SODIUM 134.4 mmol/L (137-145); TOTAL PROTEIN 6.4 g/dL (6.3-8.2); URIC ACID 6.4 mg/dL (2.5-6.2)
[2017-01-01] MEDS ORDERED: ZOLPIDEM TARTRATE 5 MG TABLET ONE (21:16)
[2017-01-01] MEDS: ZOLPIDEM TARTRATE 5 MG TABLET PO SCH (21:16)
[2017-01-02] MEDS: LABETALOL HCL 200 MG TABLET PO SCH ×3 (01:11→17:40)
[2017-01-02] MEDS ORDERED: LABETALOL HCL 200 MG TABLET ONE ×3 (01:12→17:42)
[2017-01-02] MEDS: MAGNESIUM SULFATE 20 GM/500 ML RTUINJ IV PRN ×2 (06:40→17:42)
[2017-01-02] MEDS: RINGERS SOLUTION,LACTATED 1,000 ML IV PRN (06:41)
[2017-01-02 08:11] LABS: ABSOLUTE LYMPHOCYTES (AUTO) 2.2 10^3/uL (0.5-4.7); ABSOLUTE MONOCYTES (AUTO) 0.5 10^3/uL (0.1-1.4); ABSOLUTE NEUT (AUTO) 3.8 10^3/uL (1.7-8.2); BASOPHILS % (AUTO) 0.5 % (0-2); EOSINOPHILS % (AUTO) 0.7 % (0-6); HEMATOCRIT 32.3 % (36.0-47.0); HEMOGLOBIN 11.1 g/dL (12.0-15.5); LYMPHOCYTES % (AUTO) 33.8 % (13-45); MEAN CORPUSCULAR HEMOGLOBIN 28.5 pg (27.0-33.4); MEAN CORPUSCULAR HGB CONC 34.2 g/dL (32.0-36.0); MEAN CORPUSCULAR VOLUME 83 fl (80-97); MONOCYTES % (AUTO) 7.6 % (3-13); RED BLOOD COUNT 3.88 10^6/uL (3.72-5.28); RED CELL DISTRIBUTION WIDTH 14.8 % (11.5-14.0); SEGMENTED NEUTROPHILS % (AUTO) 57.4 % (42-78); WHITE BLOOD COUNT 6.6 10^3/uL (4.0-10.5)
[2017-01-02 08:25] LABS: ALANINE AMINOTRANSFERASE 26 U/L (9-52); ALBUMIN 3.2 g/dL (3.5-5.0); ALKALINE PHOSPHATASE 90 U/L (38-126); ANION GAP 9 (5-19); ASPARTATE AMINO TRANSFERASE 17 U/L (14-36); BILIRUBIN,DIRECT 0.3 mg/dL (0.0-0.4); BILIRUBIN,TOTAL 0.4 mg/dL (0.2-1.3); BLOOD UREA NITROGEN 13 mg/dL (7-20); CALCIUM 8.4 mg/dL (8.4-10.2); CARBON DIOXIDE 21 mmol/L (22-30); CHLORIDE 105 mmol/L (98-107); GLUCOSE 90 mg/dL (75-110); LDH 484 U/L (313-618); POTASSIUM 4.6 mmol/L (3.6-5.0); SODIUM 135.3 mmol/L (137-145); TOTAL PROTEIN 6.4 g/dL (6.3-8.2); URIC ACID 6.6 mg/dL (2.5-6.2)
[2017-01-02] MEDS ORDERED: OXYTOCIN/NORMAL SALINE 20 UNIT/1,000 ML RTUINJ ONE ×2 (08:41→16:43)
[2017-01-02] MEDS ORDERED: OXYTOCIN/NORMAL SALINE 1,000 ML IV PRN ×2 (08:42→17:23)
[2017-01-02] MEDS ORDERED: PENICILLIN G-K 5 MILLION UNIT VIAL ONE (12:49)
--- NOTE | 2017-01-02 14:12 | L&D Progress Notes ---
PROGRESS NOTES Datetime Report Generated by CPN: 01/02/2017 14:11 PROGRESS NOTE Impression: Reassuring Heart Rate Procedures: Artificial ROM; Sterile Vag Exam Plan: Continue Present Management Informed Consent Obtained: Vaginal Delivery; Risks, Benefits and Alternatives Discussed Informed Consent Obtained: Risks, Benefits and Alternatives Discussed Vital Signs : Reviewed Comment: SVE and AROM w clear fluid. Cervix still has texture-not real soft yet. Will continue with induction w Pitocin. VAGINAL EXAM Dilatation: 2-3 Dilatation: 0 Dilatation: 0 Effacement: 50 Effacement: 0 Effacement: 0 Station: -2 Station: -3 Station: -4 MEMBRANES Membranes: Ruptured Amniotic Fluid Color: Clear FETUS A FHR - Baseline: 124 Monitoring: External US Variability: Moderate 6-25bpm Accelerations: 15X15 Decelerations: None FHR Category: Category I : 32.4 : 29.3 Presentation: Vertex SIGNATURE SIGNATURE: [id number] Assignment: Anabella Metzger MD Signature: with User ID: Joseph : with User ID: Joseph : I personally evaluated and examined the patient in conjunction with the MLP and agree with the assessment, treatment plan and disposition.
[2017-01-02 15:57] LABS: ABSOLUTE LYMPHOCYTES (AUTO) 2.3 10^3/uL (0.5-4.7); ABSOLUTE MONOCYTES (AUTO) 0.6 10^3/uL (0.1-1.4); ABSOLUTE NEUT (AUTO) 4.8 10^3/uL (1.7-8.2); BASOPHILS % (AUTO) 0.5 % (0-2); EOSINOPHILS % (AUTO) 0.5 % (0-6); HEMATOCRIT 32.4 % (36.0-47.0); HEMOGLOBIN 11.1 g/dL (12.0-15.5); HGB HCT DIFFERENCE 0.9; LYMPHOCYTES % (AUTO) 29.5 % (13-45); MEAN CORPUSCULAR HEMOGLOBIN 28.5 pg (27.0-33.4); MEAN CORPUSCULAR HGB CONC 34.3 g/dL (32.0-36.0); MEAN CORPUSCULAR VOLUME 83 fl (80-97); MONOCYTES % (AUTO) 7.9 % (3-13); RED CELL DISTRIBUTION WIDTH 14.9 % (11.5-14.0); SEGMENTED NEUTROPHILS % (AUTO) 61.6 % (42-78); WHITE BLOOD COUNT 7.9 10^3/uL (4.0-10.5)
[2017-01-02] MEDS ORDERED: EPHEDRINE SULFATE INJ 50 MG/1 ML AMPULE ONE (16:11)
[2017-01-02] MEDS ORDERED: PHENYLEPHRINE HCL INJ/PF 10 MG/1 ML SDV ONE (16:11)
[2017-01-02] MEDS ORDERED: FENTANYL CITRATE INJ/PF 100 MCG/2 ML AMPUL ONE (16:11)
[2017-01-02] MEDS ORDERED: BUPIVACAINE HCL 0.25 % INJ/PF (2.5 MG/1 ML) 30 ML VIAL ONE (16:12)
[2017-01-02] MEDS ORDERED: FENTANYL/BUPIVACAINE/NS/PF 200 MCG/100 ML RTUINJ EPI ONE (16:12)
[2017-01-02] MEDS ORDERED: LIDOCAINE 1% INJ-PF (10 MG/ML) 30 ML SDV ONE ×2 (16:24→16:43)
[2017-01-02] MEDS ORDERED: MISOPROSTOL 0.2 MG TABLET ONE (16:43)
[2017-01-02] MEDS ORDERED: PROMETHAZINE HCL 25 MG SUPP.RECT PR PRN (17:23)
[2017-01-02] MEDS ORDERED: PSEUDOEPHEDRINE HCL 30 MG TABLET PO PRN (17:23)
[2017-01-02] MEDS ORDERED: ZOLPIDEM TARTRATE 5 MG TABLET PO PRN (17:23)
[2017-01-02] MEDS ORDERED: BENZOCAINE/MENTHOL AEROSOL SPRAY 56 ML TOP PRN (17:23)
[2017-01-02] MEDS ORDERED: MAGNESIUM HYDROXIDE SUSP 30 ML UDCUP PO PRN (17:23)
[2017-01-02] MEDS ORDERED: ACETAMINOPHEN WITH CODEINE #3 TABLET PO PRN ×2 (17:23)
[2017-01-02] MEDS ORDERED: ACETAMINOPHEN 650 MG SUPP.RECT PR PRN (17:23)
[2017-01-02] MEDS ORDERED: PROMETHAZINE HCL INJ 25 MG/1 ML VIAL IV PRN (17:23)
[2017-01-02] MEDS ORDERED: NA PHOS,M-B/NA PHOS,DI-BA (ADULT) 133 ML ENEMA PR PRN (17:23)
[2017-01-02] MEDS ORDERED: DIPH/PERTUSS(ACELL)/TETANUS VAC/PF 0.5 ML SYR (>=10YO) IM PRN (17:23)
[2017-01-02] MEDS ORDERED: MEASLES,MUMPS&RUBELLA VACC/PF 0.5 ML VIAL SUBCUT PRN (17:23)
[2017-01-02] MEDS ORDERED: GLYCERIN/WITCH HAZEL LEAF 1 EACH MED..PAD TP PRN (17:23)
[2017-01-02] MEDS ORDERED: DIBUCAINE 1% OINTMENT 28 GM TP PRN (17:23)
[2017-01-02] MEDS ORDERED: DIPHENHYDRAMINE HCL 25 MG CAPSULE PO PRN (17:23)
[2017-01-02] MEDS ORDERED: PROMETHAZINE HCL 25 MG TABLET PO PRN (17:23)
[2017-01-02] MEDS: IBUPROFEN 800 MG TABLET PO SCH (20:51)
[2017-01-02] MEDS ORDERED: IBUPROFEN 800 MG TABLET ONE (20:53)
--- NOTE | 2017-01-02 23:14 | Admission Physical ---
Datetime Report Generated by CPN: 01/02/2017 23:13 CURRENT ADMISSION Chief Complaint: Signs/Symptoms Gestational HTN Chief Complaint: Signs/Symptoms Gestational HTN Chief Complaint: Other Chief Complaint Other: elevated pulse Indication for Induction: Not Applicable Indication for Induction: Not Applicable Indication for Induction: Not Applicable Admit Plan: Admit to Unit; Observation/Evaluation Admit Plan: Admit to Unit; Observation/Evaluation Admit Plan: Admit to Unit ALLERGIES Medication Allergies: No Medication Allergies: No Known Allergies (12/28/2016) Medication Allergies: No Known Allergies (12/25/2016) Medication Allergies: No Known Allergies (12/20/2016) Medication Allergies: No Known Allergies (12/02/2016) Medication Allergies: No Known Allergies (09/18/2016) Medication Allergies: No Known Allergies (09/04/2016) Medication Allergies: No Known Allergies (08/18/2016) Medication Allergies: No Known Allergies (07/08/2016) Latex: No Latex Allergies Food Allergies: None Environmental Allergies: None OBSTETRICAL HISTORY EDC: 02/23/2017 00:00 : 4 Para: 3 Term: 2 : 1 SAB: 0 IAB: 0 Ectopic: 0 Livin Cesareans: 0 VBACs: 0 Multiple Births: 0 Gestational Diabetes: No Rh Sensitization: No Incompetent Cervix: No MK: No Infertility: No ART Treatment: No Uterine Anomaly: No IUGR: No Hx Previous C/S: No Macrosomia: No Hx Loss/Stillborn: No PIH: Yes Hx : No Placenta Previa/Abruption: No Depression/PP Depression: No PTL/PROM: Yes Post Hemorrhage: No Current Procedures: Ultrasound; NST Obstetrical History Comments: G1 - 2009 - NVSD at 39wks, 7lbs 2oz G2 - 2011 - NVSD at 29wks, IOL Preeclampsia, 2lbs G3 - 2016 - NVDS at 37wks, IOL Gestational HTN, 7lbs, Increased bleeding (uterine sweep for clots) G4 - Current - close interval , inadequate PNC, HTN SEE RECORDS Alcohol: No Marijuana : No Cocaine: No Other Illicit Drugs: No Cigarettes: Never Smoker. [id number] MEDICAL HISTORY Diabetes: No Blood Transfusion: No Pulmonary Disease (Asthma, TB): Yes Breast Disease: No Hypertension: No [employer] Surgery: No Heart Disease: No Hosp/Surgery: Yes Autoimmune Disorder: No Anesthetic Complications: No Kidney Disease: No Abnormal Pap Smear: No Neuro/Epilepsy: No Psychiatric Disorders: No Other Medical Diseases: No Hepatitis/Liver Disease: No Significant Family History: No Varicosities/Phlebitis: No Trauma/Violence : No Thyroid Dysfunction: No Medical History Comments: Hospitalzied for childbirth asthma cyst removal from wrist age 11 INFECTIOUS HISTORY Gonorrhea: No Genital Herpes: No Chlamydia: No Tuberculosis: No Syphilis: No Hepatitis: Yes HIV/AIDS Exposure: No Rash or Viral Illness: No HPV: No Infectious History Comments: hepatitis c positive per previous records but states that HCV RNA quant not detected PHYSICAL EXAM General: Normal General: Normal General: Normal HEENT: Normal HEENT: Normal HEENT: Normal Neurologic: Normal Neurologic: Normal Neurologic: Normal Thyroid: Normal Thyroid: Normal Thyroid: Normal Heart: Normal Heart: Normal Heart: Normal Lungs: Normal Lungs: Normal Lungs: Normal Breast: Deferred Breast: Deferred Breast: Normal Back: Normal Back: Normal Back: Normal Abdomen: Normal Abdomen: Normal Abdomen: Normal Genitourinary Exam: Normal Genitourinary Exam: Normal Genitourinary Exam: Normal Extremities: Normal Extremities: Normal Extremities: Normal DTRs: Normal DTRs: Normal DTRs: Normal Pelvic Type: Adequate Pelvic Type: Adequate Pelvic Type: Adequate Vital Signs: Reviewed Vital Signs: Reviewed Vital Signs: Reviewed Details Vital Signs: severe range BPs on admission Details Vital Signs: severe range BPs on admission Details Vital Signs: severe range pressures. VAGINAL EXAM Dilatation: 2-3 Dilatation: 0 Dilatation: 0 Effacement: 50 Effacement: 0 Effacement: 0 Station: -2 Station: -3 Station: -4 MEMBRANES Membranes: Ruptured Amniotic Fluid Color: Clear FETUS A EGA: 31.6 EGA: 30.5 EGA: 28.1 Monitoring: External US Monitoring: External US Monitoring: External US FHR- Baseline: 135 FHR- Baseline: 150 Variability: Moderate 6-25bpm Variability: Minimal - Undetectable to <=5bpm Accelerations: 15X15 Accelerations: 10X10 Decelerations: None Decelerations: None FHR Category: Category I FHR Category: Category I Presentation: Vertex Admit Comment: 25yo at 31+6 ega by US at 22wks which is c/w bedside US done in ER on 08/18/2016 (approx 13wks measuring BPD by notes JERE 02/23/2017). JERE by 22+4ega US on 10/24/2016 is 02/23/2017. REviewed BPs in ER and c/w CHTN - Labetolol 100mg BID started last visit. She reports seeing [facility] once but report of appts is unclear to pt - all labs were drawn on 12/21admission and pt began care at [facility] this week. She reports MORALES today and blurry vision but none since presenting here on L_D. She had mild range BPs then has had several severe range BPs - hydralazine given with good response. Labs unremarkable except for P:C ratio of 0.4 and 24hr UTP of 830mg. Will admit for observation and optimization of Labetolol and repeat BMZ (after d/w MARILYN Clifton). If evidence of severe PreE by symptoms or BPs or e/o oliguria then may need to deliver. EFW 1911g (47%) and normal FABIANO. Admit Comment: 25yo at 30+5 ega by US at 22wks which is c/w bedside US done in ER on 08/18/2016 (approx 13wks measuring BPD by notes JERE 02/23/2017). JERE by 22+4ega US on 10/24/2016 is 02/23/2017. REviewed BPs in ER and c/w CHTN - Labetolol 100mg BID started last visit. She reports seeing [facility] once but report of appts is unclear to pt. She reports "being transferred to [facility] due to HTN". She never went due to unable to make drive. She was never sent to [facility]. She reports that she still does not have insurance. Pt presented last evening with feeling poorly, MORALES, spots in vision and had severe range BPs on admission. Labs unremarkable except for P:C ratio of 0.3. Will admit for observation and optimization of Labetolol and repeat 24 hr UTP. Stressed need to obtain care to patient. BPs improved and stable and pt will be moved to floor for continued observation. Admit Comment: patient has h/o Pre E in G1 and GHTN in G2. feels that her pulse has been elevated for several days. has had intermittent MORALES for length of . VICTORIANO has transferred her care to [place] but patient has not been due to transportation issues. Has had limitied care this . Dating is by a 22 w sono that is c/w her stated JERE which patient indicates was given to her by an ED physician doing a bedside sono in the first trimester. Will admit for obs and for ACS protocol. Will start low dose antihypertensives to keep bps in the 150/90s range, will do 24 hour urine. If patient progresses and seems to be in danger of Severe PreE and thereby need for delivery will initiate transfer to [facility]. PLANS FOR LABOR AND DELIVERY Labor and Delivery: None Pain Management: Epidural Feeding Preference: Both Benefit of Breast Feed Discussed: Yes Circumcision: N/A INFORMED CONSENT Informed Consent Obtained: Vaginal Delivery; Risks, Benefits and Alternatives Discussed Informed Consent Obtained: Risks, Benefits and Alternatives Discussed Signature: with User ID: Ramila Signature: with User ID: Ramila Signature: with User ID: Anderson : with User ID: Ramila : with User ID: Andria : I personally evaluated and examined the patient in conjunction with the MLP and agree with the assessment, treatment plan and disposition. : I personally evaluated and examined the patient in conjunction with the MLP and agree with the assessment, treatment plan and disposition.
[2017-01-03] MEDS: DOCUSATE SODIUM 100 MG CAPSULE PO SCH ×3 (00:07→17:49)
[2017-01-03] MEDS: FERROUS SULFATE 325 MG TABLET PO SCH ×3 (00:07→17:49)
[2017-01-03] MEDS: FAMOTIDINE 20 MG TABLET PO SCH ×3 (00:07→22:29)
[2017-01-03] MEDS: ZOLPIDEM TARTRATE 5 MG TABLET PO SCH ×2 (00:07→22:30)
[2017-01-03] MEDS: LABETALOL HCL 200 MG TABLET PO SCH ×3 (01:59→17:48)
[2017-01-03] MEDS: IBUPROFEN 800 MG TABLET PO SCH ×3 (06:23→22:30)
[2017-01-03 07:08] LABS: HEMOGLOBIN 10.4 g/dL (12.0-15.5); HGB HCT DIFFERENCE 1.2; MEAN CORPUSCULAR HGB CONC 34.7 g/dL (32.0-36.0); MEAN CORPUSCULAR VOLUME 84 fl (80-97); RED BLOOD COUNT 3.58 10^6/uL (3.72-5.28); RED CELL DISTRIBUTION WIDTH 14.7 % (11.5-14.0); WHITE BLOOD COUNT 8.9 10^3/uL (4.0-10.5)
[2017-01-03 07:31] LABS: ALANINE AMINOTRANSFERASE 24 U/L (9-52); ALBUMIN 2.7 g/dL (3.5-5.0); ALKALINE PHOSPHATASE 72 U/L (38-126); ANION GAP 7 (5-19); ASPARTATE AMINO TRANSFERASE 19 U/L (14-36); BILIRUBIN,DIRECT 0.3 mg/dL (0.0-0.4); BILIRUBIN,TOTAL 0.3 mg/dL (0.2-1.3); BLOOD UREA NITROGEN 18 mg/dL (7-20); CALCIUM 8.9 mg/dL (8.4-10.2); CARBON DIOXIDE 22 mmol/L (22-30); CHLORIDE 105 mmol/L (98-107); CREATININE RESULT 0.63 mg/dL (0.52-1.25); GLUCOSE 79 mg/dL (75-110); LDH 580 U/L (313-618); POTASSIUM 4.8 mmol/L (3.6-5.0); SODIUM 133.6 mmol/L (137-145); TOTAL PROTEIN 5.8 g/dL (6.3-8.2); URIC ACID 6.5 mg/dL (2.5-6.2)
[2017-01-03] MEDS: PRENATAL VITAMIN W-O CA NO5/FE FUMARATE/FA CAPSULE PO SCH (09:10)
[2017-01-03] MEDS: SENNOSIDES/DOCUSATE 8.6-50 MG 1 EACH TABLET PO SCH (09:10)
--- NOTE | 2017-01-03 09:29 | PDOC PROGRESS REPORT ---
Subjective-OB Subjective: Post Delivery Day: 26 year old. Denies any needs at this time pt sitting in bed pumping breasts, feels good, pain under control, states baby is doing better, passing gas, voiding Physical Exam (OB) Vital Signs: Temp Pulse Resp BP Pulse Ox 98.1 F 87 18 128/81 H 99 01/03/17 03:08 01/03/17 03:08 01/03/17 03:08 01/03/17 03:08 01/03/17 03:08 - PIH/Pre-Eclampsia DTR's: 1 + Clonus: Negative Headache: Absent Epigastric Pain: No Visual Changes: No - Lochia Lochia Amount: Small 10-25 ml Lochia Color: Rubra/Red - Abdomen Description: Soft Hernia Present: No Fundal Description: Firm Fundal Height: u/u - u/2 Objective-Diagnostic Laboratory: 01/03/17 06:53 01/03/17 06:53 01/02/17 01/03/17 01/03/17 15:49 06:53 06:53 WBC 7.9 8.9 RBC 3.90 3.58 L Hgb 11.1 L 10.4 L Hct 32.4 L 30.0 L MCV 83 84 MCH 28.5 29.0 MCHC 34.3 34.7 RDW 14.9 H 14.7 H Plt Count 305 252 Seg Neutrophils % 61.6 Lymphocytes % 29.5 Monocytes % 7.9 Eosinophils % 0.5 Basophils % 0.5 Absolute Neutrophils 4.8 Absolute Lymphocytes 2.3 Absolute Monocytes 0.6 Absolute Eosinophils 0.0 Absolute Basophils 0.0 Sodium 133.6 L Potassium 4.8 Chloride 105 Carbon Dioxide 22 Anion Gap 7 BUN 18 Creatinine 0.63 Est GFR ( Amer) > 60 Est GFR (Non-Af Amer) > 60 Glucose 79 Uric Acid 6.5 H Calcium 8.9 Total Bilirubin 0.3 AST 19 ALT 24 Alkaline Phosphatase 72 Total Protein 5.8 L Albumin 2.7 L Assessment and Plan(PN) - Assessment and Plan (1) delivery (maternal condition) Is this a current diagnosis for this admission?: Yes (2) Limited care Qualifiers: Trimester: third trimester Qualified Code(s): O09.33 - Supervision of with insufficient care, third trimester Is this a current diagnosis for this admission?: Yes (3) Hepatitis C carrier Is this a current diagnosis for this admission?: Yes (4) Gestational hypertension Qualifiers: Trimester: second trimester Qualified Code(s): O13.2 - Gestational [ -induced] hypertension without significant proteinuria, second trimester Is this a current diagnosis for this admission?: Yes (5) hemorrhage Qualifiers: hemorrhage type: delayed hemorrhage Qualified Code(s): O72.2 - Delayed and secondary hemorrhage Is this a current diagnosis for this admission?: Yes - Time Spent with Patient Time with patient: Less than 15 minutes Medications reviewed and adjusted accordingly: Yes - Disposition Anticipated Discharge: Home Within: within 24 hours
[2017-01-03] MEDS ORDERED: NIFEDIPINE 30 MG TAB.ER.24 PO ONE (12:30)
[2017-01-04] MEDS: LABETALOL HCL 200 MG TABLET PO SCH ×3 (01:41→18:38)
[2017-01-04] MEDS: IBUPROFEN 800 MG TABLET PO SCH ×3 (05:21→22:17)
[2017-01-04] MEDS ORDERED: NIFEDIPINE 30 MG TAB.ER.24 PO SCH (10:00)
[2017-01-04] MEDS: FERROUS SULFATE 325 MG TABLET PO SCH ×2 (10:26→18:38)
[2017-01-04] MEDS: SENNOSIDES/DOCUSATE 8.6-50 MG 1 EACH TABLET PO SCH (10:26)
[2017-01-04] MEDS: DOCUSATE SODIUM 100 MG CAPSULE PO SCH ×2 (10:26→18:38)
[2017-01-04] MEDS: NIFEDIPINE 30 MG TAB.ER.24 PO SCH (10:26)
[2017-01-04] MEDS: FAMOTIDINE 20 MG TABLET PO SCH ×2 (10:26→22:17)
[2017-01-04] MEDS: PRENATAL VITAMIN W-O CA NO5/FE FUMARATE/FA CAPSULE PO SCH (10:26)
--- NOTE | 2017-01-04 11:05 | PDOC PROGRESS REPORT ---
Subjective-OB Subjective: Post Delivery Day: 26 year old. Denies any needs at this time. Pt doing well, pumping for baby. She denies headache now but reports vision changes earlier this morning. BP meds adjusted again per Dr. Gonzales. Pt denies heavy bleeding. She reports voiding well, regular diet and has no other concerns. Physical Exam (OB) Vital Signs: Temp Pulse Resp BP Pulse Ox 98.2 F 87 15 142/94 H 100 01/04/17 08:12 01/04/17 10:24 01/04/17 08:12 01/04/17 10:24 01/04/17 08:12 Intake & Output 01/03/17 01/04/17 01/05/17 06:59 06:59 06:59 Intake Total 500 Balance 500 - PIH/Pre-Eclampsia DTR's: 2 + Clonus: Negative Headache: Absent Epigastric Pain: No Visual Changes: No - Lochia Lochia Amount: Scant < 10 ml Lochia Color: Rubra/Red - Abdomen Description: Soft Hernia Present: No Fundal Description: Firm, Midline Fundal Height: u/u - u/2 Objective-Diagnostic Laboratory: 01/03/17 06:53 01/03/17 06:53 Assessment and Plan(PN) - Assessment and Plan (1) delivery (maternal condition) Is this a current diagnosis for this admission?: Yes (2) Gestational hypertension Qualifiers: Trimester: second trimester Qualified Code(s): O13.2 - Gestational [ -induced] hypertension without significant proteinuria, second trimester Is this a current diagnosis for this admission?: Yes (3) Limited care Qualifiers: Trimester: third trimester Qualified Code(s): O09.33 - Supervision of with insufficient care, third trimester Is this a current diagnosis for this admission?: Yes - Time Spent with Patient Time with patient: Less than 15 minutes Medications reviewed and adjusted accordingly: Yes - Disposition Anticipated Discharge: Home Within: within 24 hours, within 48 hours
[2017-01-04 11:39] LABS: HEMATOCRIT 30.9 % (36.0-47.0); HEMOGLOBIN 10.4 g/dL (12.0-15.5); HGB HCT DIFFERENCE 0.3; MEAN CORPUSCULAR HEMOGLOBIN 28.4 pg (27.0-33.4); MEAN CORPUSCULAR HGB CONC 33.8 g/dL (32.0-36.0); MEAN CORPUSCULAR VOLUME 84 fl (80-97); RED BLOOD COUNT 3.67 10^6/uL (3.72-5.28); RED CELL DISTRIBUTION WIDTH 14.6 % (11.5-14.0); WHITE BLOOD COUNT 9.5 10^3/uL (4.0-10.5)
[2017-01-04 11:57] LABS: ALANINE AMINOTRANSFERASE 30 U/L (9-52); ALBUMIN 3.2 g/dL (3.5-5.0); ALKALINE PHOSPHATASE 74 U/L (38-126); ANION GAP 8 (5-19); ASPARTATE AMINO TRANSFERASE 20 U/L (14-36); BILIRUBIN,DIRECT 0.3 mg/dL (0.0-0.4); BILIRUBIN,TOTAL 0.3 mg/dL (0.2-1.3); BLOOD UREA NITROGEN 15 mg/dL (7-20); CALCIUM 9.7 mg/dL (8.4-10.2); CARBON DIOXIDE 23 mmol/L (22-30); CHLORIDE 105 mmol/L (98-107); CREATININE RESULT 0.58 mg/dL (0.52-1.25); GLUCOSE 88 mg/dL (75-110); LDH 595 U/L (313-618); POTASSIUM 4.5 mmol/L (3.6-5.0); SODIUM 136.2 mmol/L (137-145); TOTAL PROTEIN 6.4 g/dL (6.3-8.2); URIC ACID 6.2 mg/dL (2.5-6.2)
[2017-01-04] MEDS: ZOLPIDEM TARTRATE 5 MG TABLET PO SCH (22:17)
[2017-01-05] MEDS: LABETALOL HCL 200 MG TABLET PO SCH ×2 (01:53→11:07)
[2017-01-05] MEDS: IBUPROFEN 800 MG TABLET PO SCH ×2 (05:35→13:40)
[2017-01-05] MEDS: DOCUSATE SODIUM 100 MG CAPSULE PO SCH (11:06)
[2017-01-05] MEDS: FAMOTIDINE 20 MG TABLET PO SCH (11:07)
[2017-01-05] MEDS: FERROUS SULFATE 325 MG TABLET PO SCH (11:07)
[2017-01-05] MEDS: NIFEDIPINE 30 MG TAB.ER.24 PO SCH (11:09)
[2017-01-05] MEDS: PRENATAL VITAMIN W-O CA NO5/FE FUMARATE/FA CAPSULE PO SCH (11:11)
[2017-01-05] MEDS: SENNOSIDES/DOCUSATE 8.6-50 MG 1 EACH TABLET PO SCH (11:11)
--- NOTE | 2017-01-05 12:02 | PDOC DISCHARGE SUMMARY ---
Final Diagnosis Discharge Date: 01/05/17 - Final Diagnosis (1) delivery (maternal condition) Is this a current diagnosis for this admission?: Yes (2) Gestational hypertension Is this a current diagnosis for this admission?: Yes (3) Limited care Is this a current diagnosis for this admission?: Yes Discharge Data - Discharge Medication Home Medications: Vit/Iron Fumarate/FA [ Tablet] 1 each PO DAILY 03/16/16 Acetaminophen [Tylenol] 650 mg PO Q6 PRN 12/02/16 Labetalol HCl 100 mg PO BID 12/20/16 Reason(s) for Admission: Induction of Labor Procedures: NST, Management of Obstetric Complications Intrapartum Procedure(s): Spontaneous Vaginal Delivery - Diagnosis Test Laboratory: Temp Pulse Resp BP Pulse Ox 98.6 F 101 H 17 149/95 H 99 01/05/17 11:18 01/05/17 11:18 01/05/17 11:18 01/05/17 11:18 01/05/17 11:18 12/28/16 12/28/16 12/29/16 15:55 16:13 06:02 RBC 4.00 3.83 Hgb 11.5 L 11.0 L Hct 33.9 L 31.9 L Urine Opiates Screen NEGATIVE 12/30/16 12/31/16 01/01/17 06:04 11:04 07:21 RBC 3.47 L 3.81 3.86 Hgb 10.1 L 11.0 L 11.2 L Hct 29.2 L 32.6 L 32.3 L Urine Opiates Screen 01/01/17 01/02/17 01/02/17 20:17 07:58 15:49 RBC 3.94 3.88 3.90 Hgb 11.3 L 11.1 L 11.1 L Hct 33.2 L 32.3 L 32.4 L Urine Opiates Screen 01/03/17 01/04/17 06:53 11:27 RBC 3.58 L 3.67 L Hgb 10.4 L 10.4 L Hct 30.0 L 30.9 L Urine Opiates Screen - Discharge information/Instructions Discharge Activity: Balance Activity w/Rest, Pelvic Rest Discharge Diet: Regular Disposition: HOME, SELF-CARE Follow up with: [facility] in: 1, Weeks
[2017-01-05] MEDS ORDERED: LIDOCAINE 0.5% INJ-PF (5 MG/ML) 50 ML SDV ONE (12:30)
[2017-01-05] MEDS ORDERED: LIDOCAINE 1%/EPINEPHRINE INJ 20 ML VIAL INJ PRN (13:30)
[2017-01-05 13:31] VITALS: BP 140/89
[2017-01-05] MEDS ORDERED: SULFAMETHOXAZOLE/TRIMETHOPRIM 800-160 MG TABLET PO SCH (22:00)
== END 2017-01-05 15:55 | disposition home or self-care (01) | DRG 774 ==
LOC: LC 15:38 → OBSVTOIN 19:37 → LR 19:37 → 2S 12-29 01:25 → LR 12-31 15:22 → 2S 01-02 23:11
PROVIDERS: ADMIT Student in an Organized Health Care Education/Training Program; ATTEND Student in an Organized Health Care Education/Training Program
PROC: 10E0XZZ Delivery of Products of Conception, External Approach (ICD-10-PCS; principal; 2017-01-02)
PROC: 10907ZC Drainage of Amniotic Fluid, Therapeutic from Products of Conception, Via Natural or Artificial Opening (ICD-10-PCS; 2017-01-02)
DX: O60.14X0 Preterm labor third trimester with preterm delivery third trimester, not applicable or unspecified (principal); Z37.0 Single live birth; Z3A.31 31 weeks gestation of pregnancy; O10.02 Pre-existing essential hypertension complicating childbirth; O72.2 Delayed and secondary postpartum hemorrhage; O11.4 Pre-existing hypertension with pre-eclampsia, complicating childbirth
CPT/HCPCS: 36415; 59025; 80053; 80307; 81001; 82570; 83615; 84156; 84550; 85025; 85027; 86592; 86850; 86900; 86901; 87070; 87077; 87186; 87205; 88307; 94760; J0360; J0702; J2370; J2405; J2540; J2590; J3010; J3475; J3490; S0119

== ENCOUNTER 2017-06-24 13:23 | Emergency (ER) | payer MEDICAID ==
[2017-06-24] MEDS ORDERED: NORMAL SALINE 1000 ML 1,000 ML IV ONE (13:47)
[2017-06-24] MEDS ORDERED: ONDANSETRON HCL INJ/PF 4 MG/2 ML SDV IV ONE (13:47)
[2017-06-24] MEDS ORDERED: ACETAMINOPHEN 325 MG TABLET PO ONE (13:49)
--- NOTE | 2017-06-24 13:50 | ER Document Report ---
ED Medical Screen (RME) - General Chief Complaint: Urinary Problem Stated Complaint: BACK PAIN Time Seen by Provider: 06/24/17 13:47 Mode of Arrival: Ambulatory Information source: Patient TRAVEL OUTSIDE OF THE [place] IN LAST 30 DAYS: No - HPI Patient complains to provider of: dysuria Onset: Other - pt with several week h/o dysuria and cloudy urine. Started with fever today - Related Data Allergies/Adverse Reactions: No Known Allergies Allergy (Verified 06/24/17 13:26) Past Medical History - Social History Frequency of alcohol use: Daily, bottle of liquor, such as vodka Drug Abuse: None - Past Medical History Cardiac Medical History: Reports: Hx Hypertension - PIH Denies: Hx Congestive Heart Failure, Hx Heart Attack Pulmonary Medical History: Reports: Hx Asthma - Childhood asthma Denies: Hx Bronchitis, Hx COPD, Hx Pneumonia, Hx Tuberculosis Neurological Medical History: Denies: Hx Seizures Renal/ Medical History: Denies: Hx End Stage Renal Disease, Hx Kidney Stones, Hx Peritoneal Dialysis GI Medical History: Denies: Hx Cirrhosis, Hx Gastroesophageal Reflux Disease, Hx Ulcer Musculoskeltal Medical History: Denies Hx Arthritis, Denies Hx Multiple Sclerosis Psychiatric Medical History: Denies: Hx Bipolar Disorder, Hx Depression, Hx Schizophrenia - Immunizations Immunizations up to date: Yes Hx Diphtheria, Pertussis, Tetanus Vaccination: Yes Physical Exam - Vital signs Vitals: Temp Pulse Resp BP Pulse Ox 103.1 F H 141 H 18 136/101 H 97 06/24/17 13:30 06/24/17 13:30 06/24/17 13:30 06/24/17 13:30 06/24/17 13:30 Course - Vital Signs Vital signs: Temp Pulse Resp BP Pulse Ox 103.1 F H 141 H 18 136/101 H 97 06/24/17 13:30 06/24/17 13:30 06/24/17 13:30 06/24/17 13:30 06/24/17 13:30
[2017-06-24 14:03] LABS: AMORPHOUS SEDIMENT,URINE TRACE /HPF; APPEARANCE,URINE CLOUDY; BILIRUBIN,URINE NEGATIVE (NEGATIVE); COLOR,URINE YELLOW; GLUCOSE, URINE NEGATIVE (NEGATIVE); KETONES,URINE NEGATIVE (NEGATIVE); LEUKOCYTE ESTERASE,URINE LARGE (NEGATIVE); NITRITE,URINE POSITIVE (NEGATIVE); PROTEIN,URINE 100 mg/dL (NEGATIVE); URINE SPECIFIC GRAVITY 1.015; UROBILINOGEN,URINE NEGATIVE mg/dL (<2.0)
[2017-06-24 15:08] LABS: ABSOLUTE LYMPHOCYTES (AUTO) 1.4 10^3/uL (0.5-4.7); ABSOLUTE MONOCYTES (AUTO) 1.3 10^3/uL (0.1-1.4); ABSOLUTE NEUT (AUTO) 7.8 10^3/uL (1.7-8.2); BASOPHILS % (AUTO) 0.3 % (0-2); EOSINOPHILS % (AUTO) 0.1 % (0-6); HEMATOCRIT 37.1 % (36.0-47.0); HEMOGLOBIN 12.6 g/dL (12.0-15.5); LYMPHOCYTES % (AUTO) 13.5 % (13-45); MEAN CORPUSCULAR HEMOGLOBIN 27.3 pg (27.0-33.4); MEAN CORPUSCULAR VOLUME 80 fl (80-97); MONOCYTES % (AUTO) 12.7 % (3-13); PLATELET COUNT 289 10^3/uL (150-450); RED BLOOD COUNT 4.61 10^6/uL (3.72-5.28); RED CELL DISTRIBUTION WIDTH 14.6 % (11.5-14.0); SEGMENTED NEUTROPHILS % (AUTO) 73.4 % (42-78); TOTAL CELLS COUNTED % (AUTO) 100 %; WHITE BLOOD COUNT 10.6 10^3/uL (4.0-10.5)
[2017-06-24 15:11] LABS: ALANINE AMINOTRANSFERASE 39 U/L (9-52); ALBUMIN 4.8 g/dL (3.5-5.0); ALKALINE PHOSPHATASE 68 U/L (38-126); ANION GAP 13 (5-19); ASPARTATE AMINO TRANSFERASE 32 U/L (14-36); BILIRUBIN,DIRECT 0.3 mg/dL (0.0-0.4); BILIRUBIN,TOTAL 0.7 mg/dL (0.2-1.3); BLOOD UREA NITROGEN 15 mg/dL (7-20); CALCIUM 9.9 mg/dL (8.4-10.2); CARBON DIOXIDE 27 mmol/L (22-30); CHLORIDE 101 mmol/L (98-107); GLUCOSE 105 mg/dL (75-110); POTASSIUM 4.9 mmol/L (3.6-5.0); TOTAL PROTEIN 8.4 g/dL (6.3-8.2)
[2017-06-24] MEDS ORDERED: CEFTRIAXONE 2 GM/D5W RTU 2 GM/50 ML RTUPB IV ONE (15:50)
[2017-06-24] MEDS ORDERED: KETOROLAC TROMETHAMINE INJ/PF 30 MG/1 ML SDV IV ONE (15:58)
[2017-06-24] MEDS ORDERED: NORMAL SALINE 1000 ML 1,000 ML IV PRN (15:58)
--- NOTE | 2017-06-24 16:00 | ER Document Report ---
ED General - General Chief Complaint: Urinary Problem Stated Complaint: BACK PAIN Time Seen by Provider: 06/24/17 13:47 Mode of Arrival: Ambulatory Information source: Patient Notes: 26-year-old female who has had UTI symptoms for the past 2 months presents with complaints of flank pain fevers body aches nausea over the past few days. TRAVEL OUTSIDE OF THE [place] IN LAST 30 DAYS: No - HPI Onset: Other Onset/Duration: Persistent Quality of pain: Sharp Severity: Moderate Pain Level: 3 Associated symptoms: Body/muscle aches, Fever, Nausea Exacerbated by: Denies Relieved by: Denies Similar symptoms previously: No Recently seen / treated by doctor: No - Related Data Allergies/Adverse Reactions: No Known Allergies Allergy (Verified 06/24/17 13:26) Past Medical History - General Information source: Patient - Social History Smoking Status: Never Smoker Cigarette use (# per day): No Chew tobacco use (# tins/day): No Smoking Education Provided: No Frequency of alcohol use: Daily, bottle of liquor, such as vodka Drug Abuse: None Family History: Reviewed & Not Pertinent Patient has suicidal ideation: No Patient has homicidal ideation: No - Past Medical History Cardiac Medical History: Reports: Hx Hypertension - PIH Denies: Hx Congestive Heart Failure, Hx Heart Attack Pulmonary Medical History: Reports: Hx Asthma - Childhood asthma Denies: Hx Bronchitis, Hx COPD, Hx Pneumonia, Hx Tuberculosis Neurological Medical History: Denies: Hx Seizures Renal/ Medical History: Denies: Hx End Stage Renal Disease, Hx Kidney Stones, Hx Peritoneal Dialysis GI Medical History: Denies: Hx Cirrhosis, Hx Gastroesophageal Reflux Disease, Hx Ulcer Musculoskeltal Medical History: Denies Hx Arthritis, Denies Hx Multiple Sclerosis Psychiatric Medical History: Denies: Hx Bipolar Disorder, Hx Depression, Hx Schizophrenia - Immunizations Immunizations up to date: Yes Hx Diphtheria, Pertussis, Tetanus Vaccination: Yes Review of Systems - Review of Systems Notes: REVIEW OF SYSTEMS: CONSTITUTIONAL : Admits to fevers chills EENT: Denies eye, ear, throat, or mouth pain or symptoms. Denies nasal or sinus congestion or discharge. Denies throat, tongue, or mouth swelling or difficulty swallowing. CARDIOVASCULAR: Denies chest pain. Denies palpitations or racing or irregular heart beat. Denies ankle edema. RESPIRATORY: Denies cough, cold, or chest congestion. Denies shortness of breath, difficulty breathing, or wheezing. GASTROINTESTINAL: Admits to suprapubic tenderness GENITOURINARY: Denies difficulty urinating, painful urination, burning, frequency, blood in urine, or discharge. FEMALE GENITOURINARY: Denies vaginal bleeding, heavy or abnormal periods, irregular periods. Denies vaginal discharge or odor. MUSCULOSKELETAL: Admits to flank pain SKIN: Denies rash, lesions or sores. HEMATOLOGIC : Denies easy bruising or bleeding. LYMPHATIC: Denies swollen, enlarged glands. NEUROLOGICAL: Denies confusion or altered mental status. Denies passing out or loss of consciousness. Denies dizziness or lightheadedness. Denies headache. Denies weakness or paralysis or loss of use of either side. Denies problems with gait or speech. Denies sensory loss, numbness, or tingling. Denies seizures. PSYCHIATRIC: Denies anxiety or stress. Denies depression, suicidal ideation, or homicidal ideation. ALL OTHER SYSTEMS REVIEWED AND NEGATIVE. PHYSICAL EXAMINATION: GENERAL: Overall well-appearing but noted to be febrile 103. HEAD: Atraumatic, normocephalic. EYES: Pupils equal round and reactive to light, extraocular movements intact, conjunctiva are normal. ENT: Nares patent, oropharynx clear without exudates. Moist mucous membranes. NECK: Normal range of motion, supple without lymphadenopathy LUNGS: Breath sounds clear to auscultation bilaterally and equal. No wheezes rales or rhonchi. HEART: Tachycardic in the 140s ABDOMEN: Soft, tender in the suprapubic bilateral flanks Female : deferred Musculoskeletal: Normal range of motion, no pitting or edema. No cyanosis. NEUROLOGICAL: Cranial nerves grossly intact. Normal speech, normal gait. Normal sensory, motor exams PSYCH: Normal mood, normal affect. SKIN: Warm, Dry, normal turgor, no rashes or lesions noted. Dictation was performed using [employer] voice recognition software Physical Exam - Vital signs Vitals: Temp Pulse Resp BP Pulse Ox 103.1 F H 141 H 18 136/101 H 97 06/24/17 13:30 06/24/17 13:30 06/24/17 13:30 06/24/17 13:30 06/24/17 13:30 Course - Re-evaluation Re-evalutation: 06/24/17 15:59 Patient is noted to have obvious pyelonephritis, she will be given further IV fluids antibiotics 06/24/17 17:12 On reevaluation patient's heart rate has improved significantly, down to 103 she states she feels better. I will continue hydrating and will discharge home with extremely close follow-up patient has been sure that she cannot wait this long to be seen next time After performing a Medical Screening Examination, I estimate there is LOW risk for ACUTE APPENDICITIS, BOWEL OBSTRUCTION, ACUTE CHOLECYSTITIS, PERFORATED DIVERTICULITIS, INCARCERATED HERNIA, PANCREATITIS, PELVIC INFLAMMATORY DISEASE, PERFORATED ULCER, ECTOPIC , or TUBO-OVARIAN ABSCESS, thus I consider the discharge disposition reasonable. Also, there is no evidence or peritonitis , sepsis, or toxicity. I have reevaluated this patient multiple times and no significant life threatening changes are noted. The patient and I have discussed the diagnosis and risks, and we agree with discharging home with close follow-up with the understanding that symptoms and presentations can change. We also discussed returning to the Emergency Department immediately if new or worsening symptoms occur. We have discussed the symptoms which are most concerning (e.g., bloody stool, fever, changing or worsening pain, vomiting) that necessitate immediate return. - Vital Signs Vital signs: Temp Pulse Resp BP Pulse Ox 103 F H 145 H 18 138/78 H 96 06/24/17 15:59 06/24/17 15:59 06/24/17 16:44 06/24/17 15:59 06/24/17 16:44 - Laboratory Result Diagrams: 06/24/17 14:15 06/24/17 14:15 Laboratory results interpreted by me: 06/24/17 06/24/17 06/24/17 13:40 14:15 14:15 WBC 10.6 H RDW 14.6 H Total Protein 8.4 H Urine Protein 100 H Urine Blood SMALL H Urine Nitrite POSITIVE H Ur Leukocyte Esterase LARGE H Discharge - Discharge Clinical Impression: Pyelonephritis, Tachycardia Fever Qualifiers: Fever type: unspecified Qualified Code(s): R50.9 - Fever, unspecified Condition: Stable Disposition: HOME, SELF-CARE Instructions: Pyelonephritis ([facility]) Additional Instructions: Follow up with your physician tomorrow for further care or return to the ED IMMEDIATELY if symptoms worsen or new concerns occur. If you cannot afford to follow up with your primary care physician a list of low cost clinics have been provided at the end of your discharge papers as well. Prescriptions: Ciprofloxacin HCl [Cipro 500 mg Tablet] 500 mg PO BID #20 tablet
[2017-06-24 18:14] VITALS: BP 102/75
== END 2017-06-24 18:15 | disposition home or self-care (01) ==
LOC: ER 13:23
DX: N12 Tubulo-interstitial nephritis, not specified as acute or chronic (principal); R50.9 Fever, unspecified; R00.0 Tachycardia, unspecified; M79.1 Myalgia; R11.0 Nausea
CPT/HCPCS: 99283; 96361; 96375; 96365; 36415; 87040; 87086; 85025; 81025; 87088; 80053; 81001; 87186; 83605; J3490; J1885; J2405; J7030; J0696

== ENCOUNTER 2017-10-31 08:53 | Emergency (ER) | payer MEDICAID ==
[2017-10-31] MEDS ORDERED: CIPROFLOXACIN-HC OTIC SUSP 10 ML AD ONE (09:15)
--- NOTE | 2017-10-31 09:20 | ER Document Report ---
ED ENT - General Chief Complaint: Ear Pain Stated Complaint: EAR/JAW PAIN Time Seen by Provider: 10/31/17 09:06 Mode of Arrival: Ambulatory Information source: Patient Notes: 37-year-old female presents to ED for complaint of right ear pain with swollen anterior lymph nodes for 3 days. She states that is actually making her jaw hurt but she does not have any toothaches. She is about 10 weeks with her third child. She states she has had preeclampsia with the first 2. TRAVEL OUTSIDE OF THE [place] IN LAST 30 DAYS: No - HPI Patient complains to provider of: Ear problem Onset: Other Onset/Duration: Gradual - 3 days Quality of pain: Sharp, Stabbing Severity: Moderate Pain Level: 4 Context: Recent Illness Location of pain: Ears - Right ear Associated symptoms: Ear pain, Ear drainage, Swollen glands Similar symptoms previously: Yes Recently seen / treated by doctor: Yes - Related Data Allergies/Adverse Reactions: No Known Allergies Allergy (Verified 10/31/17 08:54) Past Medical History - General Information source: Patient - Social History Smoking Status: Former Smoker Cigarette use (# per day): No Chew tobacco use (# tins/day): No Smoking Education Provided: No Frequency of alcohol use: Rare Drug Abuse: None 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 Lives with: Family Family History: Reviewed & Not Pertinent Patient has suicidal ideation: No Patient has homicidal ideation: No - Past Medical History Cardiac Medical History: Reports: Hx Hypertension - PIH Pulmonary Medical History: Reports: Hx Asthma - Childhood asthma EENT Medical History: Reports: Ears Neurological Medical History: Reports: None Endocrine Medical History: Reports: None Renal/ Medical History: Reports: Other - Preeclampsia with first 2 babies Malignancy Medical History: Reports: None Musculoskeltal Medical History: Reports Hx Musculoskeletal Trauma Skin Medical History: Reports None Traumatic Medical History: Reports: Hx Fractures - Left forearm Infectious Medical History: Reports: None Past Surgical History: Reports: Other - Cyst removed - Immunizations Immunizations up to date: Yes Hx Diphtheria, Pertussis, Tetanus Vaccination: Yes Review of Systems - Review of Systems Constitutional: No symptoms reported EENT: Ear pain, Other - Jaw pain and lymph nodes swollen due to her pain Cardiovascular: No symptoms reported Respiratory: No symptoms reported Gastrointestinal: No symptoms reported Genitourinary: No symptoms reported Female Genitourinary: No symptoms reported Musculoskeletal: No symptoms reported Skin: No symptoms reported Hematologic/Lymphatic: No symptoms reported Neurological/Psychological: No symptoms reported -: Yes All other systems reviewed and negative Physical Exam - Vital signs Vitals: Temp Pulse Resp BP Pulse Ox 99.3 F 101 H 16 150/110 H 99 10/31/17 08:57 10/31/17 08:57 10/31/17 08:57 10/31/17 08:57 10/31/17 08:57 Interpretation: Normal, Hypertensive, Tachycardic - General General appearance: Appears well, Alert - HEENT Head: Normocephalic, Atraumatic Eyes: Normal Pupils: PERRL Ears: Normal External canal: Erythema, Swollen, Other - Right ear drainage in the ear Tympanic membrane: Normal Sinus: Normal Nasal: Normal Mouth/Lips: Normal Mucous membranes: Normal Pharynx: Normal Neck: Normal, Anterior cervical chain - Respiratory Respiratory status: No respiratory distress Chest status: Nontender Breath sounds: Normal Chest palpation: Normal - Cardiovascular Rhythm: Regular Heart sounds: Normal auscultation Murmur: No - Abdominal Inspection: Normal Distension: No distension Bowel sounds: Normal Tenderness: Nontender Organomegaly: No organomegaly - Back Back: Normal, Nontender - Extremities General upper extremity: Normal inspection, Nontender, Normal color, Normal ROM , Normal temperature General lower extremity: Normal inspection, Nontender, Normal color, Normal ROM , Normal temperature, Normal weight bearing. No: Margarita's sign - Neurological Neuro grossly intact: Yes Cognition: Normal Orientation: AAOx4 Daniel Coma Scale Eye Opening: Spontaneous [place] Coma Scale Verbal: Oriented [place] Coma Scale Motor: Obeys Commands [place] Coma Scale Total: 15 Speech: Normal Motor strength normal: LUE, RUE, LLE, RLE Sensory: Normal - Psychological Associated symptoms: Normal affect, Normal mood - Skin Skin Temperature: Warm Skin Moisture: Dry Skin Color: Normal Course - Re-evaluation Re-evalutation: 10/31/17 09:27 Patient was treated with Cipro otic eardrops and discharged home. Patient was instructed to follow-up with her NEURORADIOLOGIST as her blood pressure is elevated. Patient will be instructed on use of eardrops. She has been given a Cipro otic drops in the emergency room and a prescription for another so she can use them for 7 days. Patient to follow-up with ENT - Vital Signs Vital signs: Temp Pulse Resp BP Pulse Ox 99.3 F 97 16 151/99 H 99 10/31/17 08:57 10/31/17 09:21 10/31/17 08:57 10/31/17 09:21 10/31/17 08:57 Discharge - Discharge Clinical Impression: Right otitis externa Qualifiers: Otitis externa type: unspecified type Chronicity: acute Qualified Code(s): H60.501 - Unspecified acute noninfective otitis externa, right ear HTN (hypertension) Qualifiers: Hypertension type: unspecified Qualified Code(s): I10 - Essential (primary) hypertension Condition: Stable Disposition: HOME, SELF-CARE Additional Instructions: OTITIS EXTERNA: You have otitis externa -- an infection of the outer ear canal. This can be very painful. It's sometimes called "swimmer's ear," because it often occurs after prolonged water exposure. Many things, such as earwax and dirt in the ear, can contribute to it. The usual treatment is antibiotic/antiinflammatory ear drops. Occasionally , a wick will be placed in the ear to draw in the medicine. If the infection is severe, an oral antibiotic may be prescribed. Pain medication is often needed. Avoid getting water in the ear. Outer ear infections often take longer to heal than you might expect. Some tenderness and ache in the ear may persist for about two weeks. See your physician if you fail to improve as expected. Call the doctor at once if you develop fever, increasing swelling (particularly if it makes your ear "poke out"), severe headache, stiff neck, or decreased hearing. Your blood pressure is very elevated for being since you have already had a history of preeclampsia please follow-up with your NEURORADIOLOGIST today by telephone and schedule a follow-up appointment USE OF EAR DROPS: Your ear drops won't do much good if they don't get all the way in. To help the ear drops penetrate all the way to the ear drum, use the following technique. If you encounter problems of any kind, notify the physician. (1) Lay your head sideways on a pillow. (2) Place the dropper tip just barely inside the ear canal, almost touching the bottom side of the canal. The liquid is tolerated better on the bottom of the canal. (3) Squeeze out the appropriate amount of medicine, and remove the dropper. (4) Grab the back of the ear (just behind the ear canal) between your index finger and thumb. (5) Tug up, then let the ear drop back. Repeat several times. This pumps the medicine down. (6) Wait five minutes, then place a cotton ball in the ear canal to catch and hold the medicine. CIPROFLOXACIN: You have been given an antibacterial agent, ciprofloxacin (Cipro). This medicine is not related to the penicillins, sulfas, cephalosporins, or tetracyclines. It is often given to patients who are allergic to these drugs. It has been chosen for you either because other drugs are not appropriate, or because of the nature of your problem. Cipro should not be taken with antacids, as these can decrease its effectiveness. It can be taken without regard to meals. CIPRO SHOULD NOT BE TAKEN BY CHILDREN, NURSING WOMEN, OR WOMEN. Although Cipro is usually well-tolerated, common side effects can include nausea and diarrhea. Contact your doctor if you experience any unusual symptoms while on this medication, such as joint pain or swelling, shortness of breath, wheezing, faintness, or hives. USE OF ACETAMINOPHEN (Tylenol): Acetaminophen may be taken for pain relief or fever control. It's much safer than aspirin, offering a wider range of "safe" dosages. It is safe during . Some brand names are Tylenol, Panadol, Datril, Anacin 3, Tempra, and Liquiprin. Acetaminophen can be repeated every four hours. The following are maximum recommended dosages: WEIGHT Dose Drops Elixir Chewable( 80mg) (LBS.) drprs=droppers tsp=teaspoon 6 40 mg 0.4 ml (1/2) 6-11 80 mg 0.8 ml (full) tsp 1 tab 12-16 120 mg 1 1/2 drprs 3/4 tsp 1 1/2 tabs 17-23 160 mg 2 drprs 1 tsp 2 tabs 24-30 240 mg 3 drprs 1 1/2 tsp 3 tabs 30-35 320 mg 2 tsp 4 tabs 36-41 360 mg 2 1/4 tsp 4 1/2 tabs 42-47 400 mg 2 1/2 tsp 5 tabs 48-53 480 mg 3 tsp 6 tabs 54-59 520 mg 3 1/4 tsp 6 1/2 tabs 60-64 560 mg 3 1/2 tsp 7 tabs 65-70 600 mg 3 3/4 tsp 7 1/2 tabs 71-76 640 mg 4 tsp 8 tabs 77-82 720 mg 4 1/2 tsp 9 tabs 83-88 800 mg 5 tsp 10 tabs >89 pounds or adults 650 mg to 900 mg Acetaminophen can be repeated every four hours. Maximum dose not to exceed 4000 mg a day. These maximum recommended dosages are slightly higher than the dosages written on the product container, but these dosages are very safe and below the toxic dosage for acetaminophen. FOLLOW-UP CARE: If you have been referred to a physician for follow-up care, call the physician s office for an appointment as you were instructed or within the next two days. If you experience worsening or a significant change in your symptoms, notify the physician immediately or return to the Emergency Department at any time for re-evaluation. Prescriptions: Ciprofloxacin HCl/Hc [Cipro HC Otic Suspension] 4 drop RT_EAR BID 7 Days bottle Forms: Elevated Blood Pressure, Return to Work Referrals: MURIEL JONES DO [ASSOCIATE] - Follow up as needed
[2017-10-31 09:22] VITALS: BP 151/99
== END 2017-10-31 09:46 | disposition home or self-care (01) ==
LOC: ER 08:53
DX: O26.891 Other specified pregnancy related conditions, first trimester (principal); H60.501 Unspecified acute noninfective otitis externa, right ear; O16.1 Unspecified maternal hypertension, first trimester; H92.01 Otalgia, right ear; R68.84 Jaw pain; H92.10 Otorrhea, unspecified ear; R59.9 Enlarged lymph nodes, unspecified; O99.52 Diseases of the respiratory system complicating childbirth; Z3A.10 10 weeks gestation of pregnancy; Z87.891 Personal history of nicotine dependence
CPT/HCPCS: 99282; J3490

== ENCOUNTER 2017-12-15 23:52 | Emergency (ER) | payer MEDICAID ==
--- NOTE | 2017-12-16 00:47 | ER Document Report ---
ED Medical Screen (RME) - General Chief Complaint: Vag Bleeding, +preg <12wks Stated Complaint: VAGINAL BLEEDING Time Seen by Provider: 12/16/17 00:46 TRAVEL OUTSIDE OF THE [place] IN LAST 30 DAYS: No - HPI Patient complains to provider of: with vaginal bleeding Notes: 12/16/17 00:46 Patient is a 27-year-old female who is , presenting to the emergency room with vaginal bleeding and pelvic cramping, she reports her last menstrual period was approximately 3 months ago, she had a positive home but has not been seen by a physician during this 12/16/17 00:47 RAPID MEDICAL EVALUATION DISCLOSURE I have seen this patient as part of a Rapid Medical Evaluation and, if applicable, placed any initially appropriate orders. The patient will be seen and fully evaluated, including a full history and physical exam, by a provider ( in Main ED or Fast Track) when a room becomes available. - Related Data Allergies/Adverse Reactions: No Known Allergies Allergy (Verified 10/31/17 08:54) Past Medical History - Past Medical History Cardiac Medical History: Reports: Hx Hypertension - PIH Denies: Hx Congestive Heart Failure, Hx Heart Attack Pulmonary Medical History: Reports: Hx Asthma - Childhood asthma Denies: Hx Bronchitis, Hx COPD, Hx Pneumonia, Hx Tuberculosis Neurological Medical History: Denies: Hx Seizures Renal/ Medical History: Denies: Hx End Stage Renal Disease, Hx Kidney Stones, Hx Peritoneal Dialysis GI Medical History: Denies: Hx Cirrhosis, Hx Gastroesophageal Reflux Disease, Hx Ulcer Musculoskeltal Medical History: Denies Hx Arthritis, Denies Hx Multiple Sclerosis, Reports Hx Musculoskeletal Trauma Psychiatric Medical History: Denies: Hx Bipolar Disorder, Hx Depression, Hx Schizophrenia Traumatic Medical History: Reports: Hx Fractures - Left forearm Past Surgical History: Reports: Other - Cyst removed - Immunizations Immunizations up to date: Yes Hx Diphtheria, Pertussis, Tetanus Vaccination: Yes Physical Exam - Vital signs Vitals: Temp Pulse Resp BP Pulse Ox 99.1 F 108 H 16 156/110 H 99 12/15/17 23:56 12/15/17 23:56 12/15/17 23:56 12/15/17 23:56 12/15/17 23:56 Course - Vital Signs Vital signs: Temp Pulse Resp BP Pulse Ox 99.1 F 108 H 16 156/110 H 99 12/15/17 23:56 12/15/17 23:56 12/15/17 23:56 12/15/17 23:56 12/15/17 23:56 - Laboratory Result Diagrams: 12/16/17 00:10
[2017-12-16 00:48] LABS: ABSOLUTE BASOPHILS # (AUTO) 0.1 10^3/uL (0.0-0.2); ABSOLUTE EOSINOPHILS # (AUTO) 0.2 10^3/uL (0.0-0.6); ABSOLUTE LYMPHOCYTES (AUTO) 3.1 10^3/uL (0.5-4.7); ABSOLUTE MONOCYTES (AUTO) 0.7 10^3/uL (0.1-1.4); ABSOLUTE NEUT (AUTO) 4.1 10^3/uL (1.7-8.2); BASOPHILS % (AUTO) 0.7 % (0-2); EOSINOPHILS % (AUTO) 2.1 % (0-6); HEMOGLOBIN 12.8 g/dL (12.0-15.5); LYMPHOCYTES % (AUTO) 38.1 % (13-45); MEAN CORPUSCULAR HGB CONC 33.6 g/dL (32.0-36.0); MEAN CORPUSCULAR VOLUME 83 fl (80-97); MONOCYTES % (AUTO) 8.4 % (3-13); PLATELET COUNT 298 10^3/uL (150-450); RED BLOOD COUNT 4.56 10^6/uL (3.72-5.28); SEGMENTED NEUTROPHILS % (AUTO) 50.7 % (42-78); TOTAL CELLS COUNTED % (AUTO) 100 %; WHITE BLOOD COUNT 8.1 10^3/uL (4.0-10.5)
[2017-12-16 01:19] LABS: APPEARANCE,URINE CLOUDY; BILIRUBIN,URINE NEGATIVE (NEGATIVE); GLUCOSE, URINE NEGATIVE (NEGATIVE); KETONES,URINE NEGATIVE (NEGATIVE); LEUKOCYTE ESTERASE,URINE NEGATIVE (NEGATIVE); NITRITE,URINE NEGATIVE (NEGATIVE); PROTEIN,URINE 100 mg/dL (NEGATIVE); URINE SPECIFIC GRAVITY 1.008; UROBILINOGEN,URINE NEGATIVE mg/dL (<2.0)
[2017-12-16 01:20] LABS: COLOR,URINE RED
--- NOTE | 2017-12-16 02:26 | ER Document Report ---
ED GI/ - General Chief Complaint: Vag Bleeding, +preg <12wks Stated Complaint: VAGINAL BLEEDING Time Seen by Provider: 12/16/17 00:46 Notes: The patient is a 27-year-old female, , LMP possibly 3 months ago, presents with 1 day of pelvic cramping and vaginal bleeding with clots. She took a positive test at home, but has not seen a doctor for this . She denies syncope, dysuria, hematuria, fevers, diarrhea or constipation. TRAVEL OUTSIDE OF THE [place] IN LAST 30 DAYS: No - Related Data Allergies/Adverse Reactions: No Known Allergies Allergy (Verified 10/31/17 08:54) Past Medical History - Social History Smoking Status: Never Smoker Frequency of alcohol use: None Drug Abuse: None Family History: Reviewed & Not Pertinent Patient has suicidal ideation: No Patient has homicidal ideation: No - Past Medical History Cardiac Medical History: Reports: Hx Hypertension - PIH Denies: Hx Congestive Heart Failure, Hx Heart Attack Pulmonary Medical History: Reports: Hx Asthma - Childhood asthma Denies: Hx Bronchitis, Hx COPD, Hx Pneumonia, Hx Tuberculosis Neurological Medical History: Denies: Hx Seizures Renal/ Medical History: Denies: Hx End Stage Renal Disease, Hx Kidney Stones, Hx Peritoneal Dialysis GI Medical History: Denies: Hx Cirrhosis, Hx Gastroesophageal Reflux Disease, Hx Ulcer Musculoskeletal Medical History: Denies Hx Arthritis, Denies Hx Multiple Sclerosis, Reports Hx Musculoskeletal Trauma Psychiatric Medical History: Denies: Hx Bipolar Disorder, Hx Depression, Hx Schizophrenia Traumatic Medical History: Reports: Hx Fractures - Left forearm Past Surgical History: Reports: Other - Cyst removed - Immunizations Immunizations up to date: Yes Hx Diphtheria, Pertussis, Tetanus Vaccination: Yes Review of Systems - Review of Systems Notes: REVIEW OF SYSTEMS: CONSTITUTIONAL: -fevers, -chills EENT: -eye pain, -difficulty swallowing, -nasal congestion CARDIOVASCULAR: -chest pain, -syncope. RESPIRATORY: -cough, -SOB GASTROINTESTINAL: +vaginal bleeding, +lower abdominal cramping, -nausea, - vomiting, -diarrhea GENITOURINARY: -dysuria, -hematuria MUSCULOSKELETAL: -back pain, -neck pain SKIN: -rash or skin lesions. HEMATOLOGIC: -easy bruising or bleeding. LYMPHATIC: -swollen, enlarged glands. NEUROLOGICAL: -altered mental status or loss of consciousness, -headache, - neurologic symptoms PSYCHIATRIC: -anxiety, -depression. ALL OTHER SYSTEMS REVIEWED AND NEGATIVE. Physical Exam - Vital signs Vitals: Temp Pulse Resp BP Pulse Ox 99.1 F 108 H 16 156/110 H 99 12/15/17 23:56 12/15/17 23:56 12/15/17 23:56 12/15/17 23:56 12/15/17 23:56 - Notes Notes: PHYSICAL EXAMINATION: GENERAL: Well-appearing, well-nourished and in no acute distress. HEAD: Atraumatic, normocephalic. EYES: Pupils equal round and reactive to light, extraocular movements intact, sclera anicteric, conjunctiva are normal. ENT: nares patent, oropharynx clear without exudates. Moist mucous membranes. NECK: Normal range of motion, supple without lymphadenopathy LUNGS: Breath sounds clear to auscultation bilaterally and equal. No wheezes rales or rhonchi. HEART: Regular rate and rhythm without murmurs ABDOMEN: Soft, nontender, normoactive bowel sounds. No guarding, no rebound. No masses appreciated. : Large clot on bed, small amount of oozing from cervical os, non-tender uterus and adnexa EXTREMITIES: Normal range of motion, no pitting or edema. No cyanosis. NEUROLOGICAL: Cranial nerves grossly intact. Normal speech, normal gait. Normal sensory and motor exams. PSYCH: Normal mood, normal affect. SKIN: Warm, Dry, normal turgor, no rashes or lesions noted. Course - Re-evaluation Re-evalutation: Patient with a spontaneous miscarriage on ultrasound and physical exam that appears completed due to the slowing of her bleeding. Uterus was massaged and she appears well. When she tried to stand up after returning from the bathroom , she became to vagal down. Provided her with IV fluids she feels much better. Her OB is at [facility]. Instructed her to follow-up this week to ensure that her miscarriage is completed. Given very strict return precautions and she understands. - Vital Signs Vital signs: Temp Pulse Resp BP Pulse Ox 99.1 F 108 H 16 156/110 H 99 12/15/17 23:56 12/15/17 23:56 12/15/17 23:56 12/15/17 23:56 12/15/17 23:56 - Laboratory Result Diagrams: 12/16/17 00:10 Laboratory results interpreted by me: 12/16/17 12/16/17 12/16/17 00:10 00:10 00:10 RDW 15.0 H Beta HCG, Quant 5887.90 H Urine Protein 100 H Urine Blood MODERATE H - Diagnostic Test Radiology reviewed: Image reviewed, Reports reviewed Radiology results interpreted by me: Transvaginal US: Findings consistent with a spontaneous in progress. Recommend clinical follow-up. Discharge - Discharge Clinical Impression: Spontaneous miscarriage Condition: Stable Additional Instructions: Miscarriage You have had a miscarriage (medically called a "spontaneous "). The miscarriage occurred because the fetus did not develop normally. There is nothing you did to cause it, and nothing you could have done to prevent it. About one in four ends in miscarriage. You should rest in bed for two or three days. As there is some risk of infection of the uterus, you should not have intercourse for one week (or until okayed by your physician). You might not have a period for six to eight weeks. You should not become again for at least three months -- the uterus requires time to get back to normal. Call the doctor or return for re-examination if there is heavy or persistent vaginal bleeding, fever, foul discharge, continued cramping pains, or abdominal pain. Prescriptions: Hydrocodone/Acetaminophen [[place] 5-325 mg Tablet] 1 tab PO Q6H PRN #10 tablet PRN Reason: Ibuprofen [Motrin 600 Mg Tablet] 600 mg PO TID #15 tablet Forms: Elevated Blood Pressure Referrals: MARLENY RAMOS MD [ACTIVE STAFF] - Follow up as needed
--- NOTE | 2017-12-16 03:42 | RADIOLOGY REPORT (SQ) ---
Ultrasound OB first trimester on 12/16/2017 at 3:01 AM CLINICAL INDICATION: , vaginal bleeding COMPARISON: None this FINDINGS: Multiple sonographic images are obtained throughout the pelvis by transabdominal and transvaginal approach, both transverse and sagittal images are obtained. Uterus measures approximately 12.2 x 7.2 x 7.9 cm. There is any elongated oval fluid collection likely representing gestational sac extending into the endometrium in the lower uterine segment and cervix. No yolk sac or pole is noted. The patient's beta hCG is reportedly over 5000 and an intrauterine should have been identified. The appearance is most consistent with a spontaneous in progress. Neither ovary is visualized. No adnexal mass or fluid collection is noted. No free fluid is noted. IMPRESSION: Findings most consistent with a spontaneous in progress. Recommend clinical follow-up.
[2017-12-16] MEDS ORDERED: HYDROCODONE/ACETAMINOPHEN 5-325 MG TABLET PO ONE (04:06)
[2017-12-16] MEDS ORDERED: IBUPROFEN 600 MG TABLET PO ONE (04:06)
[2017-12-16] MEDS ORDERED: NORMAL SALINE 1000 ML 1,000 ML IV ONE (04:46)
[2017-12-16 06:26] VITALS: BP 112/82
== END 2017-12-16 06:25 | disposition home or self-care (01) ==
LOC: ER 23:52
DX: O03.9 Complete or unspecified spontaneous abortion without complication (principal)
CPT/HCPCS: 99284; 86900; 86901; 36415; 84702; 85025; 81001; 76801; J3490

== ENCOUNTER 2018-11-25 23:04 | Emergency (ER) | payer SELFPAY ==
[2018-11-26] MEDS ORDERED: NORMAL SALINE 1000 ML 1,000 ML IV ONE (02:08)
[2018-11-26] MEDS ORDERED: ONDANSETRON HCL INJ/PF 4 MG/2 ML SDV IV ONE (02:08)
[2018-11-26 02:46] LABS: ABSOLUTE BASOPHILS # (AUTO) 0.1 10^3/uL (0.0-0.2); ABSOLUTE EOSINOPHILS # (AUTO) 0.1 10^3/uL (0.0-0.6); ABSOLUTE LYMPHOCYTES (AUTO) 2.8 10^3/uL (0.5-4.7); ABSOLUTE NEUT (AUTO) 7.4 10^3/uL (1.7-8.2); BASOPHILS % (AUTO) 0.9 % (0-2); HEMATOCRIT 35.4 % (36.0-47.0); HEMOGLOBIN 11.8 g/dL (12.0-15.5); LYMPHOCYTES % (AUTO) 24.7 % (13-45); MEAN CORPUSCULAR HGB CONC 33.4 g/dL (32.0-36.0); MEAN CORPUSCULAR VOLUME 81 fl (80-97); PLATELET COUNT 251 10^3/uL (150-450); RED BLOOD COUNT 4.38 10^6/uL (3.72-5.28); RED CELL DISTRIBUTION WIDTH 15.5 % (11.5-14.0); SEGMENTED NEUTROPHILS % (AUTO) 64.4 % (42-78); TOTAL CELLS COUNTED % (AUTO) 100 %; WHITE BLOOD COUNT 11.5 10^3/uL (4.0-10.5)
[2018-11-26 02:48] LABS: APPEARANCE,URINE SLIGHTLY-CLOUDY; BILIRUBIN,URINE NEGATIVE (NEGATIVE); COLOR,URINE YELLOW; GLUCOSE, URINE NEGATIVE (NEGATIVE); KETONES,URINE NEGATIVE (NEGATIVE); LEUKOCYTE ESTERASE,URINE NEGATIVE (NEGATIVE); NITRITE,URINE NEGATIVE (NEGATIVE); PROTEIN,URINE 30 mg/dL (NEGATIVE); URINE SPECIFIC GRAVITY 1.023; UROBILINOGEN,URINE NEGATIVE mg/dL (<2.0)
[2018-11-26] MEDS ORDERED: KETOROLAC TROMETHAMINE INJ/PF 30 MG/1 ML SDV IV ONE (02:55)
[2018-11-26] MEDS ORDERED: MORPHINE SULFATE 10 MG/ML INJ IV ONE (03:06)
[2018-11-26 03:14] LABS: ANION GAP 10 (5-19); BLOOD UREA NITROGEN 12 mg/dL (7-20); CALCIUM 9.5 mg/dL (8.4-10.2); CARBON DIOXIDE 27 mmol/L (22-30); CHLORIDE 102 mmol/L (98-107); GLUCOSE 114 mg/dL (75-110); SODIUM 138.8 mmol/L (137-145)
[2018-11-26] MEDS ORDERED: CIPROFLOXACIN HCL/DEXAMETH OTIC DROP 7.5 ML AS ONE (04:21)
[2018-11-26 04:35] VITALS: BP 121/81
--- NOTE | 2018-11-26 04:47 | ER Document Report ---
Doctor's Note Notes: I personally and independently obtained patient history and examined the patient in conjunction with the APC and agree with the assessment, treatment plan and disposition of the patient as recorded by the APC, and have reviewed the APC's note. HISTORY OF PRESENT ILLNESS: Patient is a 28-year-old female that presents to the emergency department for chief complaint of left ear pain. ROS: Constitutional: Negative for fever. Cardiovascular: Negative for chest pain. Respiratory: Negative for shortness of breath. Gastrointestinal: Negative for vomiting or abdominal pain Musculoskeletal: Negative for arm, leg or back pain Skin: Negative for rash. Neurological: Negative for weakness or numbness. Other than noted above, the 12 point review of systems was reviewed with the patient and were negative, all pertinent findings are included in the HPI. PHYSICAL EXAMINATION: Vital signs reviewed, nursing noted reviewed. GENERAL: Well-appearing, well-nourished and in no acute distress. HEAD: Atraumatic, normocephalic. EYES: Eyes appear normal, conjunctiva are normal. ENT: nares patent, Moist mucous membranes. Left external auditory canal, is edematous, there is a small window we can see the TM and it does appear normal. NECK: Normal range of motion, supple without lymphadenopathy LUNGS: No respiratory distress PSYCH: Normal mood, normal affect. SKIN: Warm, Dry, normal turgor, no rashes or lesions noted on exposed skin MEDICAL DECISION MAKING: Patient appeared well, after treatment, we did place a wick in the left external auditory canal, patient tolerated well, Ciprodex was applied. Patient discharged home with Ciprodex, advised to use for 7 days. Please review detail APC documentation. *Note is created using voice recognition software and may contain spelling, syntax or grammatical errors. Laboratory 11/26/18 11/26/18 11/26/18 00:24 00:24 00:24 WBC 11.5 H RBC 4.38 Hgb 11.8 L Hct 35.4 L MCV 81 MCH 27.0 MCHC 33.4 RDW 15.5 H Plt Count 251 Seg Neutrophils % 64.4 Lymphocytes % 24.7 Monocytes % 9.0 Eosinophils % 1.0 Basophils % 0.9 Absolute Neutrophils 7.4 Absolute Lymphocytes 2.8 Absolute Monocytes 1.0 Absolute Eosinophils 0.1 Absolute Basophils 0.1 Sodium 138.8 Potassium 4.0 Chloride 102 Carbon Dioxide 27 Anion Gap 10 BUN 12 Creatinine 0.53 Est GFR ( Amer) > 60 Est GFR (Non-Af Amer) > 60 Glucose 114 H Calcium 9.5 Urine Color YELLOW Urine Appearance SLIGHTLY-CLOUDY Urine pH 5.0 Ur Specific [place] 1.023 Urine Protein 30 H Urine Glucose (UA) NEGATIVE Urine Ketones NEGATIVE Urine Blood NEGATIVE Urine Nitrite NEGATIVE Urine Bilirubin NEGATIVE Urine Urobilinogen NEGATIVE Ur Leukocyte Esterase NEGATIVE Urine WBC (Auto) 1 Urine RBC (Auto) 1 Squamous Epi Cells Auto 8 Urine Mucus (Auto) OCC Urine Ascorbic Acid NEGATIVE Urine HCG, Qual NEGATIVE
--- NOTE | 2018-11-26 04:59 | ER Document Report ---
ED ENT - General Chief Complaint: Dizziness Stated Complaint: EAR PAIN Time Seen by Provider: 11/26/18 01:57 Notes: Patient is a 28-year-old female with a history of asthma who presents to the emergency department with a chief complaint of left ear pain. Patient states that she developed left ear pain 3 days ago. Patient states she has had chills but denies fever. Patient states she does have a history of ear infections and that this feels the same. Patient has had nausea with 2 episodes of diarrhea within the past 24 hours. Patient denies sore throat or neck pain. Denies drainage to the ear. Denies cough. Denies difficulty swallowing. Patient states that it is difficult to hear out of the left ear. TRAVEL OUTSIDE OF THE [place] IN LAST 30 DAYS: No - Related Data Allergies/Adverse Reactions: No Known Allergies Allergy (Verified 10/31/17 08:54) Past Medical History - General Information source: Patient - Social History Smoking Status: Unknown if Ever Smoked Cigarette use (# per day): No Chew tobacco use (# tins/day): No Frequency of alcohol use: None Drug Abuse: None Lives with: Spouse/Significant other Family History: Reviewed & Not Pertinent Patient has suicidal ideation: No Patient has homicidal ideation: No - Past Medical History Cardiac Medical History: Reports: Hx Hypertension - PIH Denies: Hx Congestive Heart Failure, Hx Heart Attack Pulmonary Medical History: Reports: Hx Asthma - Childhood asthma Denies: Hx Bronchitis, Hx COPD, Hx Pneumonia, Hx Tuberculosis EENT Medical History: Reports: None Neurological Medical History: Reports: None. Denies: Hx Seizures Endocrine Medical History: Reports: None Renal/ Medical History: Reports: None. Denies: Hx End Stage Renal Disease, Hx Kidney Stones, Hx Peritoneal Dialysis Malignancy Medical History: Reports: None GI Medical History: Reports: None. Denies: Hx Cirrhosis, Hx Gastroesophageal Reflux Disease, Hx Ulcer Musculoskeletal Medical History: Denies Hx Arthritis, Denies Hx Multiple Sclerosis, Reports Hx Musculoskeletal Trauma Skin Medical History: Reports None Psychiatric Medical History: Reports: None Denies: Hx Bipolar Disorder, Hx Depression, Hx Schizophrenia Traumatic Medical History: Reports: Hx Fractures - Left forearm Infectious Medical History: Reports: None Surgical Hx: Negative Past Surgical History: Reports: Other - Cyst removed - Immunizations Immunizations up to date: Yes Hx Diphtheria, Pertussis, Tetanus Vaccination: Yes Review of Systems - Review of Systems Constitutional: No symptoms reported EENT: See HPI Cardiovascular: No symptoms reported Respiratory: No symptoms reported Gastrointestinal: See HPI Genitourinary: No symptoms reported Female Genitourinary: No symptoms reported Musculoskeletal: No symptoms reported Skin: No symptoms reported Hematologic/Lymphatic: No symptoms reported Neurological/Psychological: No symptoms reported Physical Exam - Vital signs Vitals: Temp Pulse Resp BP Pulse Ox 99.5 F 133 H 22 H 152/106 H 98 11/25/18 23:50 11/25/18 23:50 11/25/18 23:50 11/25/18 23:50 11/25/18 23:50 Interpretation: Hypertensive, Tachycardic - Notes Notes: GENERAL: Well-appearing, well-nourished and in no acute distress. HEAD: Atraumatic, normocephalic. EYES: Pupils equal round and reactive to light, extraocular movements intact, sclera anicteric, conjunctiva are normal. ENT: Right TM normal and able to visualize all landmarks, Left TM unable to visualize due to edema in the external auditory canal- patient does have a small amount of clear drainage from the ear, tenderness noted to the external pinna and tragus, nares patent, oropharynx clear without exudates. Moist mucous membranes. NECK: Normal range of motion, supple without lymphadenopathy or JVD. LUNGS: Breath sounds clear to auscultation bilaterally and equal. No wheezes rales or rhonchi. HEART: Regular rate and rhythm without murmurs, rubs or gallops. ABDOMEN: Soft, nontender, normoactive bowel sounds. No guarding, no rebound. No masses appreciated. BACK: No cervical, thoracic, lumbar midline tenderness. No saddle anesthesia, normal distal neurovascular exam. GENITOURINARY: Deferred. EXTREMITIES: Normal range of motion, no pitting or edema. No clubbing or cyanosis. NEUROLOGICAL: Cranial nerves II through XII grossly intact. Normal speech, normal gait. PSYCH: Normal mood, normal affect. SKIN: Warm, Dry, normal turgor, no rashes or lesions noted. Course - Re-evaluation Re-evalutation: 11/26/18 05:48 Upon initial exam patient is sitting upright in stretcher and reports left ear pain. Patient is tachycardic on the monitor but is afebrile. I will obtain basic lab work as the patient reports diarrhea. Will give patient a liter of fluids and medicate for pain. Upon reevaluation Dr. Lima Mi brought into the room to assist with the placement of an ear wick in for evaluation of the left ear. Left ear wick was placed as documented by physician and Ciprodex drops administered. Tolerated well. She states that after receiving Toradol she is now able to hear out of her left ear and it feels less swollen. - Vital Signs Vital signs: Temp Pulse Resp BP Pulse Ox 98.4 F 133 H 23 H 121/81 95 11/26/18 04:30 11/25/18 23:50 11/26/18 04:30 11/26/18 04:30 11/26/18 04:30 - Laboratory Result Diagrams: 11/26/18 00:24 11/26/18 00:24 Laboratory results interpreted by me: 11/26/18 11/26/18 11/26/18 00:24 00:24 00:24 WBC 11.5 H Hgb 11.8 L Hct 35.4 L RDW 15.5 H Glucose 114 H Urine Protein 30 H Discharge - Discharge Clinical Impression: Otitis externa Qualifiers: Otitis externa type: unspecified type Chronicity: acute Laterality: left Qualified Code(s): H60.502 - Unspecified acute noninfective otitis externa, left ear Condition: Stable Disposition: HOME, SELF-CARE Additional Instructions: Today you were seen in the emergency department for left ear pain. You do have an ear infection of the outer ear canal. We did place an ear wick in your ear which helps keep the medicine in the ear canal. Please use the Ciprodex drops as prescribed which is 4 drops in the left ear twice a day for 7 days. Please return to the emergency department for neck pain, fever, increase swelling the left ear or left face, difficulty breathing or any other concerning signs or symptoms. Using Ear Drops with a Wick A wick has been placed in your ear. This keeps the medicine in constant contact with the ear canal. You'll need to put fresh medicine into the wick. Follow these instructions. If you encounter problems of any kind, notify the physician. (1) Lay your head sideways on a pillow. (2) Place the dropper tip so it's almost touching the wick. (3) Squeeze out the appropriate amount of medicine. (4) Wait a minute for the medicine to soak in before sitting up. (5) Wipe away any extra medicine from your ear. Otitis Externa You have otitis externa -- an infection of the outer ear canal. This can be very painful. It's sometimes called "swimmer's ear," because it often occurs after prolonged water exposure. Many things, such as earwax and dirt in the ear, can contribute to it. The usual treatment is antibiotic/antiinflammatory ear drops. Occasionally, a wick will be placed in the ear to draw in the medicine. If the infection is severe, an oral antibiotic may be prescribed. Pain medication is often needed. Avoid getting water in the ear. Outer ear infections often take longer to heal than you might expect. Some tenderness and ache in the ear may persist for about two weeks. See your physician if you fail to improve as expected. Call the doctor at once if you develop fever, increasing swelling (particularly if it makes your ear "poke out"), severe headache, stiff neck, or decreased hearing.
[2018-11-26] MEDS ORDERED: ACETAMINOPHEN 325 MG TABLET PO ONE (05:07)
== END 2018-11-26 05:14 | disposition home or self-care (01) ==
LOC: ER 23:04
DX: H60.502 Unspecified acute noninfective otitis externa, left ear (principal); H92.02 Otalgia, left ear; R00.0 Tachycardia, unspecified; R68.83 Chills (without fever); R11.0 Nausea; R19.7 Diarrhea, unspecified
CPT/HCPCS: 99284; 96361; 96374; 96375; 36415; 85025; 81025; 80048; 81001; J1885; J2270; J3490; J2405; J7030